=== PATIENT | female | born 1975 | race African-American/Black ===

== ENCOUNTER → 2020-04-23 15:10 | Outpatient (CLI) | payer BC, SELFPAY ==
--- NOTE | ~2020-04-23 | US_ITS ---
EXAMINATION: US transvaginal DATE: 04/23/2020 15:44 INDICATION: Pelvic pain TECHNIQUE: Multiple endovaginal sonographic images of the pelvis were obtained. COMPARISON: 09/30/2019 FINDINGS: The uterus measures 9.0 x 4.8 x 5.6 cm. There is a 3.3 x 2.8 x 2.9 cm isoechoic lesion of t he posterior uterine body which has the appearance of an intramural fibroid. A 1.8 cm lesion of the a nterior uterine body with similar sonographic features also likely represents an intramural fibroid. The endometrial complex measures 7 mm. An IUD is noted which appears to be positioned within the lowe r uterine body. The right ovary measures 2.9 x 1.7 x 2.4 cm. The left ovary measures 3.4 x 2.1 x 2.1 cm. There is normal vascular flow in the ovaries. There is no free fluid in the pelvis. IMPRESSION: 1. Uterine fibroids. 2. IUD appears positioned lower than expected in the uterus. Reviewed, dictated and finalized at location A.
== END ==
PROVIDERS: Visit Provider Nurse Practitioner
DX: R10.2 Pelvic and perineal pain (principal); D25.9 Leiomyoma of uterus, unspecified; Z97.5 Presence of (intrauterine) contraceptive device
CPT/HCPCS: 76830

== ENCOUNTER 2020-09-04 07:31 | Outpatient (CLI) | payer BC, SELFPAY ==
--- NOTE | ~2020-09-04 | US_ITS ---
EXAMINATION: US venous doppler LE RT DATE: 09/04/2020 08:07 INDICATION: Right lower limb pain. TECHNIQUE: Grayscale ultrasound images without and with compression and Doppler ultrasound images of the right lower extremity veins were obtained. COMPARISON: None. FINDINGS: The visualized portions of right common femoral vein, profunda (deep) femoral vein, femoral vein, pop liteal vein, peroneal veins, posterior tibial veins, and greater saphenous vein outflow are patent. IMPRESSION: 1. No deep venous thrombosis. Reviewed, dictated and finalized at location A. 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
== END 2020-09-04 07:32 | disposition home or self-care (01) ==
PROVIDERS: PCP Family Medicine; Visit Provider Family Medicine
DX: M79.604 Pain in right leg (principal)
CPT/HCPCS: 93971

== ENCOUNTER → 2020-12-17 11:21 | Outpatient (CLI) | payer BC, SELFPAY ==
--- NOTE | ~2020-12-17 | MM_ITS ---
EXAMINATION: MM screening saji BI w ant HISTORY: Screening mammogram, family history of breast cancer in her mother and two sisters, all of w bella are BRCA positive. TECHNIQUE: Craniocaudal and mediolateral oblique 3-D tomosynthesis images were obtained and synthetic 2-D images were generated. CAD analysis was submitted and interpreted. COMPARISON: None, baseline BREAST PARENCHYMAL COMPOSITION: There are scattered areas of fibroglandular density. FINDINGS: RIGHT BREAST: An asymmetry is present in the middle third of the lower breast on the mediolateral obl ique view 6 cm from the nipple. LEFT BREAST: There is no evidence of suspicious mass, calcification, or architectural distortion to s uggest malignancy. IMPRESSION: 1. Right breast asymmetry on the mediolateral oblique view. 2. Additional mammographic views and possible breast ultrasound are recommended. In addition, given t he patient's strong family history of breast cancer, genetic counseling will be recommended and addit ional screening with MRI may be indicated. BI-RADS Category 0: Incomplete: Needs additional imaging evaluation. Reviewed, dictated and finalized at location A. IMPRESSION: 1. Right breast asymmetry on the mediolateral oblique view. 2. Additional mammographic views and possible breast ultrasound are recommended . In addition, given the patient's strong family history of breast cancer, gene tic counseling will be recommended and additional screening with MRI may be ind icated. BI-RADS Category 0: Incomplete: Needs additional imaging evaluation.
== END ==
PROVIDERS: Visit Provider Nurse Practitioner
DX: Z12.31 Encounter for screening mammogram for malignant neoplasm of breast (principal); R92.8 Other abnormal and inconclusive findings on diagnostic imaging of breast
CPT/HCPCS: 77063; 77067

== ENCOUNTER → 2020-12-27 08:34 | Outpatient (CLI) | payer BC, SELFPAY ==
--- NOTE | ~2020-12-27 | MMUS_ITS ---
EXAMINATION: MM diagnostic mammo unilat RT, US breast RT limited HISTORY: Inferior right breast asymmetry on screening MLO view of 12/17/2020 TECHNIQUE: Additional 3-D tomosynthesis images of the right breast were performed and synthetic 2-D i mages were generated. CAD analysis was submitted and interpreted. High resolution lower inner and low er outer quadrant right breast ultrasound was performed. COMPARISON: 12/17/2020 bilateral digital screening mammogram FINDINGS: MAMMOGRAPHIC FINDINGS: No reproducible mass Or architectural distortion is evident. ULTRASOUND: No suspicious mass or shadowing is detected in the lower half of the right breast. IMPRESSION: 1. No mammographic evidence of malignancy 2. Routine mammographic screening is recommended. BI-RADS Category 1: Negative Reviewed, dictated and finalized at location A. IMPRESSION: 1. No mammographic evidence of malignancy 2. Routine mammographic screening is recommended. BI-RADS Category 1: Negative
== END ==
PROVIDERS: Visit Provider Obstetrics & Gynecology Gynecology
DX: R92.8 Other abnormal and inconclusive findings on diagnostic imaging of breast (principal)
CPT/HCPCS: 76642; 77065

== ENCOUNTER 2021-09-14 08:19 | Outpatient (CLI) | payer BC, SELFPAY ==
--- NOTE | ~2021-09-14 | MR_ITS ---
EXAMINATION: MR brain/brain stem wo/w con DATE: 09/14/2021 09:52 INDICATION: Anesthesia of skin. Left-sided numbness. TECHNIQUE: Magnetic resonance imaging (MRI) of the brain and brainstem was performed without and with 19 mL MultiHance intravenous contrast. Sequences included sagittal and axial T1-weighted FSE, axial diffusion-weighted FS EPI, axial T2*-weighted GRE, axial T2-weighted FLAIR Propeller, and axial T2-we ighted Propeller. Postcontrast sequences included axial, sagittal, and coronal T1-weighted FSE. Appar ent diffusion coefficient (ADC) maps were created. COMPARISON: None. FINDINGS: There is no intracranial hemorrhage, acute infarction, or abnormal intracranial mass lesion . The ventricles are normal in size. There is a mucous retention cyst in left maxillary sinus. The or bits are normal. The mastoid air cells are normal. IMPRESSION: 1. Normal brain. Reviewed, dictated and finalized at location A. RN IMPRESSION: 1. Normal brain.
[2021-09-14 09:18] LABS: Estimated Glomerular Filt Rate > 60
== END 2021-09-14 08:20 | disposition home or self-care (01) ==
PROVIDERS: PCP Family Medicine; Visit Provider Nurse Practitioner Gerontology
DX: R20.0 Anesthesia of skin (principal)
CPT/HCPCS: 70553; A9577

== ENCOUNTER 2021-09-29 08:41 | Outpatient (CLI) | payer BC, SELFPAY ==
--- NOTE | 2021-09-29 12:38 | WPDPFTINT ---
PFT Procedure Performed PFT Procedure Performed Spirometry with Pre/Post Bronchodilator Plethysmography (Lung Vol) Diffusing Cap (DLCO) Flow Vol Loop PFT Interpretation This is a pulmonary function test with pre and post-bronchodilator spirometry, plethysmography and diffusing capacity. The test was performed and results interpreted in accordance with the 2019 and 2005 ATS/ERS Task Force guidelines respectively using the Global Lung Function Initiative-2012 reference equations. Patient demonstrated good effort and cooperation. Reproducibility criteria were met. The quality of the pre bronchodilator spirometry maneuver was Grade A and post bronchodilator spirometry maneuver was Grade A. Findings: Spirometry: The contour the inspiratory and expiratory flow tracing are normal. The pre bronchodilator FVC is 2.61 L, 91% predicted. The pre bronchodilator FEV1 is 2.21 L, 94% predicted. The FEV1: FVC ratio was 85%. The post bronchodilator FVC is 2.73 L, representing a 5% increase. The post bronchodilator FEV1 is 2.37 L, representing a 7% increase. The post bronchodilator FEV1: FVC ratio was 87%. Plethysmography: The total lung capacity is 3.88 L, 93% predicted. The functional residual capacity is 2.25 L, 97% predicted. The residual volume is 1.27 L, 89% predicted. Diffusing capacity: The absolute diffusion capacity is 19.7, 87% predicted. The diffusing capacity corrected for alveolar volume is 5.73, 119% predicted. Impression: The spirometry is normal without evidence of an obstructive abnormality. There is no significant improvement after inhaling a single dose of albuterol. The lung volumes are normal. The diffusing capacity is normal. There are no prior studies for comparison
== END 2021-09-29 08:42 | disposition home or self-care (01) ==
PROVIDERS: PCP Family Medicine; Visit Provider Family Medicine
DX: J05.0 Acute obstructive laryngitis [croup] (principal)
CPT/HCPCS: 94060; 94726; 94729

== ENCOUNTER → 2021-11-08 09:33 | Outpatient (CLI) | payer BC, SELFPAY ==
--- NOTE | ~2021-11-08 | US_ITS ---
EXAMINATION: US transvaginal DATE: 11/08/2021 10:05 INDICATION: Abnormal uterine bleeding. IUD. Comparison:Ultrasound dated 04/23/2020 TECHNIQUE: Multiple transabdominal and endovaginal sonographic images of the pelvis performed. FINDINGS: The uterus measures 10.8 x 5.3 x 6.6 cm. There are multiple uterine fibroids, largest measu ring 3.1 cm greatest dimension. There is an IUD in expected position in the endometrium. The endometr ial complex measures 8 mm. The right ovary measures 2.5 x 2.1 x 2.6 cm and the left ovary measures 3.7 x 2.1 x 3.2 cm. There ar e small follicles in each ovary. Normal doppler signal in both ovaries. There is no free fluid in the pelvis. There are no abnormal masses seen on either side. IMPRESSION: 1. Enlarged uterus with multiple uterine fibroids, largest measuring up to 3.1 cm maximum dimension. Reviewed, dictated and finalized at location A. 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
== END ==
PROVIDERS: Visit Provider Nurse Practitioner
DX: N93.8 Other specified abnormal uterine and vaginal bleeding (principal); Z97.5 Presence of (intrauterine) contraceptive device; D25.9 Leiomyoma of uterus, unspecified
CPT/HCPCS: 76830

== ENCOUNTER → 2022-01-27 14:03 | Outpatient (CLI) | payer BC, SELFPAY ==
--- NOTE | ~2022-01-27 | MM_ITS ---
EXAMINATION: MM screening saji BI w ant HISTORY: Screening TECHNIQUE: Craniocaudal and mediolateral oblique 3-D tomosynthesis images were obtained and synthetic 2-D images were generated. CAD analysis was submitted and interpreted. COMPARISON: 12/17/2020 BREAST PARENCHYMAL COMPOSITION: There are scattered areas of fibroglandular density. FINDINGS: There is no evidence of suspicious mass, calcification, or architectural distortion to sugg est malignancy in either breast. There has been no suspicious interval change. IMPRESSION: 1. No mammographic evidence of malignancy. 2. Recommend routine screening mammography in one year. BI-RADS Category 1: Negative Reviewed, dictated and finalized at location A.
== END ==
PROVIDERS: PCP Family Medicine; Visit Provider Nurse Practitioner
DX: Z12.31 Encounter for screening mammogram for malignant neoplasm of breast (principal)
CPT/HCPCS: 77063; 77067

== ENCOUNTER 2022-02-10 15:00 | Outpatient (RCR) | payer BC, SELFPAY ==
--- NOTE | 2022-01-09 09:08 | STOPEVAL ---
SPEECH THERAPY INITIAL EVALUATION FOR VOICE Thank you for referring Huma Carlos to [facility].? The patient is scheduled to be seen for therapy? 1x/week for 4 weeks. Please review, sign, date and return this plan of care MORRIS. I agree with and certify that the following plan of care is medically necessary. Referring Physician Date Attending Provider: Singh Pittman MD Therapy Assessment Status Assessment Status Assessment Status Evaluation Outpatient Past Medical History Neurological History Hx Neurological Disorders No Significant History Cardiovascular History Hx Hypertension Yes Respiratory History Hx Respiratory Disorders No Significant History Gastrointestinal History Hx Ulcerative Colitis Yes: OFF MEDS FOR 2 YEARS Hx Other Gastrointestinal Disorders Yes: BLOOD IN STOOL, MILD CONSTIPATION Evaluation Information Problem Diagnosis Dysphonia Onset 07/10 Additional Evaluation Detail Gradual worsening of symptoms beginning around June 2021. 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 Around June,, she began to notice she was screeching, raising of pitch with loss of voicing. She noticed that she may speak well between 9-12 in the morning, with pitch breaks beginning around noon, and then loss of voice by four PM through the end of the work day. She reports an average day of speaking around 7 hours and 15 minutes, up to 10-11 hours a day of speaking. She reports minimal rest breaks in between customers. Patient reports she has had to miss work for various amounts of time, from an hour through a whole day due to loss of voice. Patient reports that she has suffered a dry cough throughout this time. She reported that this occurred prior to the June and her physician prescribed a 90 day prescription of Omeprazole.
--- NOTE | 2022-02-12 16:30 | STOPEVAL ---
SPEECH THERAPY DISCHARGE SUMMARY Thank you for referring Huma Carlos to [facility].? I understand patient is being discharged from Speech Therapy with all goals achieved. Referring Physician Date Attending Provider: Singh Pittman MD ST Clinical Summary Clinical Summary ST Clinical Summary SPEECH THERAPY DISCHARGE SUMMARY This patient was seen for an initial evaluation of voice due to complaints of vocal hoarseness and voice breaking or screeching at times due to vocal fatigue. She was seen for four additional visits to address introduction to vocal hygiene program along with respiration/ phonation coordination and relaxation techniques, and safe swallowing guidelines and gastroesophageal reflux precautions. Patient voiced and demonstrated good understanding of results and recommendations. Of concern is her need to speak on the phone for great lengths of time during the word day; patient stated that she has learned some techniques to assist with this such as placing customers on brief holds when she feels her voice is beginning to break, and requesting a change to a different position that requires more paperwork and less telephone time. During our sessions, patient speaks frequently, constantly and quickly and appears to be somewhat oblivious to this although she does report she is aware that she speaks like this. Nonetheless during our last session, she spoke almost non-stop until her voice became fatigued and then hoarseness occurred. Overall, patient stated that
== END 2022-02-13 11:07 | disposition home or self-care (01) ==
LOC: ANHST 15:00
PROVIDERS: Visit Provider Otolaryngology
DX: R49.0 Dysphonia (principal)
CPT/HCPCS: 92507; 92524

== ENCOUNTER 2022-07-09 11:17 | Outpatient (CLI) | payer BC, SELFPAY ==
[2022-07-09 11:48] LABS: Basophils Percent Auto 0.4 % (0.2-1.2); Eosinophils Percent Auto 0.4 % (0-4.4); Hematocrit 37.4 % (37.0-47.0); Hemoglobin 12.3 g/dL (12.0-15.0); Immature Granulocyte Absolute 0.02 K/mm3 (0.00-0.031); Immature Granulocyte Percent A 0.4 % (0-0.5); Lymphocytes Absolute Auto 1.41 K/mm3 (0.9-3.2); Lymphocytes Percent Auto 30.4 % (18.3-44.2); Mean Corpuscular HGB Conc 32.9 g/dl (32-36); Mean Corpuscular Hemoglobin 22.9 pg (26-34); Mean Corpuscular Volume 69.5 fl (80-100); Mean Platelet Volume 9.3 fl (7.4-10.4); Monocytes Absolute Auto 0.5 K/mm3 (0.1-0.6); Monocytes Percent Auto 11.6 % (2.6-8.5); Neutrophils Absolute Auto 2.6 K/mm3 (1.3-6.7); Neutrophils Percent Auto 56.8 % (45.5-73.1); Platelet Count Result 224 k/mm3 (150-375); Red Blood Count 5.38 M/mm3 (4.2-5.4); Red Cell Distribution Width 14.3 % (11.5-14.5); White Blood Count 4.6 K/mm3 (4.5-10.0)
[2022-07-09 12:01] LABS: Alanine Aminotransferase 36 U/L (6-35); Albumin Level 4.3 g/dL (3.5-5.1); Alkaline Phosphatase 49 U/L (38-126); Anion Gap 9 mmol/L (8-16); Aspartate Amino Transferase 46 U/L (14-36); Bilirubin,Total 0.3 mg/dL (0.2-1.3); Blood Urea Nitrogen 12 mg/dL (7-17); Calcium 8.5 mg/dL (8.4-10.2); Carbon Dioxide 28 mmol/L (22-30); Chloride 100 mmol/L (98-107); Estimated Glomerular Filt Rate > 60; Glucose 98 mg/dL (65-110); Potassium 3.6 mmol/L (3.4-5.0); Sodium 137 mmol/L (137-145)
[2022-07-09 13:00] LABS: Hypochromasia 1+ (NORMAL); Platelet Estimate Adequate (Adequate); Target Cells 1+ (NORMAL)
[2022-07-09 13:05] LABS: Schistocytes None Seen (NORMAL)
== END 2022-07-09 11:18 | disposition home or self-care (01) ==
LOC: ANHLAB 11:18
PROVIDERS: PCP Family Medicine; Visit Provider Physician Assistant
DX: I10 Essential (primary) hypertension (principal); R63.5 Abnormal weight gain; K51.90 Ulcerative colitis, unspecified, without complications
CPT/HCPCS: 36415; 80053; 84443; 85025

== ENCOUNTER → 2023-04-16 16:26 | Outpatient (CLI) | payer BC, SELFPAY ==
--- NOTE | ~2023-04-16 | MM_ITS ---
EXAMINATION: MM screening saji BI w ant HISTORY: Screening mammogram TECHNIQUE: Craniocaudal and mediolateral oblique 3-D tomosynthesis images were obtained and synthetic 2-D images were generated. CAD analysis was submitted and interpreted. COMPARISON: 01/27/2022 bilateral screening mammogram 12/27/2020 diagnostic right mammogram and limited right breast ultrasound examination 12/17/2020 bilateral screening mammogram BREAST PARENCHYMAL COMPOSITION: There are scattered areas of fibroglandular density. FINDINGS: There is no evidence of suspicious mass, calcification, or architectural distortion to sugg est malignancy in either breast. There has been no suspicious interval change. IMPRESSION: 1. No mammographic evidence of malignancy. 2. Recommend routine screening mammography in one year. BI-RADS Category 1: Negative Reviewed, dictated and finalized at location A.
== END ==
PROVIDERS: PCP Obstetrics & Gynecology Gynecology; Visit Provider Family Medicine
DX: Z12.31 Encounter for screening mammogram for malignant neoplasm of breast (principal)
CPT/HCPCS: 77063; 77067

== ENCOUNTER 2023-08-10 01:31 | Day surgery (SDC) | payer BC, SELFPAY ==
[2023-07-28 09:25] VITALS: BMI 37.7
--- NOTE | 2023-08-06 14:22 | SUR.PREOP ---
Patient called regarding upcoming procedure. No answer- message left with arrival time and phone number for questions.
[2023-08-10 10:15] VITALS: BP 128/99; PULSE 100; RESP 18; TEMP 36.2; O2SAT 100; BMI 37.8
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
[2023-08-10] MEDS: LACTATED RINGERS 1,000 ML 150 ML IV CONT (10:40)
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
[2023-08-10 11:34] VITALS: BP 120/86; PULSE 91; RESP 22; O2SAT 100
[2023-08-10 11:44] VITALS: BP 131/91; PULSE 88; RESP 20; O2SAT 100
[2023-08-10 11:54] VITALS: BP 122/87; PULSE 87; RESP 19; O2SAT 100
== END 2023-08-10 12:01 | disposition home or self-care (01) ==
PROVIDERS: PCP Family Medicine; Visit Provider Internal Medicine Gastroenterology
PROC: 0DJD8ZZ Inspection of Lower Intestinal Tract, Via Natural or Artificial Opening Endoscopic (ICD-10-PCS; CPT 45378; principal; 2023-08-10 11:30)
DX: K51.20 Ulcerative (chronic) proctitis without complications (principal); I10 Essential (primary) hypertension; F41.1 Generalized anxiety disorder; E05.90 Thyrotoxicosis, unspecified without thyrotoxic crisis or storm; F33.1 Major depressive disorder, recurrent, moderate; E66.9 Obesity, unspecified; Z68.37 Body mass index [BMI] 37.0-37.9, adult; K64.8 Other hemorrhoids
CPT/HCPCS: 45380; 88305; J2001; J2704; J7120

== ENCOUNTER 2024-02-20 18:08 | Emergency (ER) | payer BC, SELFPAY ==
[2024-02-20] VITALS (12 sets, daily range): BP systolic 119–173; BP diastolic 88–122; PULSE 72–89; RESP 14–22; TEMP 36.6; O2SAT 99–100
--- NOTE | ~2024-02-20 | XR_ITS ---
EXAMINATION: XR chest 2V DATE: 02/20/2024 18:33 INDICATION: Chest heaviness. TECHNIQUE: Frontal and lateral views of the chest were obtained. COMPARISON: Chest 2 views 05/29/2019 FINDINGS: There is motion artifact on the lateral view. There is no pneumonia, pleural effusion, or p neumothorax. The heart size is normal. IMPRESSION: 1. No acute cardiopulmonary disease. Reviewed, dictated and finalized at location E.
--- NOTE | 2024-02-20 18:15 | ECG_ITS ---
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 Measurements Intervals [place] Rate: 86 P: 26 CA: 145 QRS: -42 QRSD: 122 T: 253 QT: 363 QTc: 436 Interpretive Statements SINUS RHYTHM MARKED LEFT AXIS DEVIATION [QRS AXIS < -30] POSSIBLE RIGHT VENTRICULAR CONDUCTION DELAY [RSR (QR) IN V1/V2] ABNORMAL ECG No previous ECG available for comparison Electronically Signed On 02-21-2024 07:25:07 CDT by Gal Arevalo M.D.
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
[2024-02-20 18:56] LABS: Basophils Percent Auto 0.7 % (0.2-1.2); Eosinophils Percent Auto 0.3 % (0-4.4); Hematocrit 37.2 % (37.0-47.0); Hemoglobin 12.6 g/dL (12.0-15.0); Immature Granulocyte Absolute 0.02 K/mm3 (0.00-0.031); Immature Granulocyte Percent A 0.7 % (0-0.5); Lymphocytes Absolute Auto 0.72 K/mm3 (0.9-3.2); Mean Corpuscular HGB Conc 33.9 g/dl (32-36); Mean Corpuscular Hemoglobin 23.4 pg (26-34); Mean Corpuscular Volume 69.1 fl (80-100); Mean Platelet Volume 10.6 fl (7.4-10.4); Monocytes Absolute Auto 0.5 K/mm3 (0.1-0.6); Monocytes Percent Auto 16.3 % (2.6-8.5); Neutrophils Absolute Auto 1.6 K/mm3 (1.3-6.7); Platelet Count Result 203 k/mm3 (150-375); Red Blood Count 5.38 M/mm3 (4.2-5.4); Red Cell Distribution Width 16.4 % (11.5-14.5); White Blood Count 2.9 K/mm3 (4.5-10.0)
[2024-02-20 19:07] LABS: Anisocytosis 1+; Hypochromasia 1+; Microcytosis 1+ (NORMAL); Platelet Estimate Adequate (Adequate); Target Cells 1+
[2024-02-20 19:08] LABS: INR 1.1; Prothrombin Time 14.6 Seconds (11.1-14.7); Schistocytes None Seen
[2024-02-20 19:09] LABS: Partial Thromboplastin Time 24.4 Seconds (22.3-36.8)
[2024-02-20 19:18] LABS: Troponin I < 0.012 ng/mL (0.000-0.034)
[2024-02-20 19:19] LABS: Alanine Aminotransferase 38 U/L (6-35); Albumin Level 4.3 g/dL (3.5-5.1); Alkaline Phosphatase 58 U/L (38-126); Anion Gap 7 mmol/L (4-12); Aspartate Amino Transferase 47 U/L (14-36); Bilirubin,Total 0.9 mg/dL (0.2-1.3); Blood Urea Nitrogen 3 mg/dL (7-17); Calcium 9.2 mg/dL (8.4-10.2); Carbon Dioxide 31 mmol/L (22-30); Chloride 99 mmol/L (98-107); Estimated CRCL calculation 105 ml/min; Estimated Glomerular Filt Rate > 60; Glucose 107 mg/dL (65-110); Lipase 32 U/L (23-300); Potassium 2.8 mmol/L (3.4-5.0); Sodium 137 mmol/L (137-145)
[2024-02-20] MEDS: POTASSIUM CHLORIDE 20 MEQ PACKET (FOR LIQUID) 40 MEQ PO (19:38)
[2024-02-20] MEDS: POTASSIUM CHLORIDE 20 MEQ ER TABLET 40 MEQ PO (19:39)
[2024-02-20] MEDS: cloNIDine HCL 0.1 MG TABLET PO (19:39)
[2024-02-20 19:57] LABS: Magnesium 1.7 mg/dL (1.6-2.3)
--- NOTE | 2024-02-20 21:05 | ECG_ITS ---
[facility] [address] Test Date: 2024-02-20 Pat Name: Huma Carlos Department: Room: Gender: F [employer] Rep[employer]r: : 1975 Requested By: Valentina Oquendo Order Number: [id number] Jin MD: Gal Arevalo M.D. Measurements Intervals [place] Rate: 71 P: -13 OK: 137 QRS: -37 QRSD: 84 T: -60 QT: 373 QTc: 407 Interpretive Statements SINUS RHYTHM MARKED LEFT AXIS DEVIATION [QRS AXIS < -30] POSSIBLE RIGHT VENTRICULAR CONDUCTION DELAY [RSR (QR) IN V1/V2] MODERATE VOLTAGE CRITERIA FOR LVH, CONSIDER NORMAL VARIANT [MEETS CRITERIA I NONSPECIFIC T-WAVE ABNORMALITY ABNORMAL ECG Compared to ECG 02/20/2024 18:19:08 NO SIGNIFICANT DIFFERENCE Electronically Signed On 02-21-2024 07:32:06 CDT by Gal Arevalo M.D.
[2024-02-20 22:07] LABS: Troponin I < 0.012 ng/mL (0.000-0.034)
== END 2024-02-20 22:23 | disposition home or self-care (01) ==
PROVIDERS: Emergency Medicine; Emergency Provider Emergency Medicine; PCP Family Medicine
DX: R07.89 Other chest pain (principal); E87.6 Hypokalemia; I10 Essential (primary) hypertension; E66.09 Other obesity due to excess calories; Z68.37 Body mass index [BMI] 37.0-37.9, adult; K51.90 Ulcerative colitis, unspecified, without complications; F41.1 Generalized anxiety disorder; F33.9 Major depressive disorder, recurrent, unspecified; Z97.5 Presence of (intrauterine) contraceptive device; Z79.899 Other long term (current) drug therapy; R94.31 Abnormal electrocardiogram [ECG] [EKG]
CPT/HCPCS: 36415; 71046; 80053; 83690; 83735; 84484; 85025; 85610; 85730; 93005; 99284; A9270

== ENCOUNTER 2024-04-18 07:39 | Outpatient (CLI) | payer BC, SELFPAY ==
--- NOTE | ~2024-04-18 | MM_ITS ---
EXAMINATION: MM screening saji BI w ant HISTORY: Screening TECHNIQUE: Craniocaudal and mediolateral oblique 3-D tomosynthesis images were obtained and synthetic 2-D images were generated. CAD analysis was submitted and interpreted. COMPARISON: Comparison to multiple prior studies sequentially, with oldest reviewed study dated 12/17. BREAST PARENCHYMAL COMPOSITION: Not dense: There are scattered areas of fibroglandular density. FINDINGS: There is no evidence of suspicious mass, calcification, or architectural distortion to sugg est malignancy in either breast. There has been no suspicious interval change. IMPRESSION: 1. No mammographic evidence of malignancy. 2. Recommend routine screening mammography in one year. BI-RADS Category 1: Negative Reviewed, dictated and finalized at location B.
== END 2024-04-18 07:40 ==
PROVIDERS: PCP Family Medicine; Visit Provider Nurse Practitioner
DX: Z12.31 Encounter for screening mammogram for malignant neoplasm of breast (principal)
CPT/HCPCS: 77063; 77067

== ENCOUNTER 2024-05-02 14:29 | Outpatient (CLI) | payer BC, SELFPAY ==
--- NOTE | ~2024-05-02 | US_ITS ---
EXAMINATION: US transvaginal DATE: 05/02/2024 14:53 INDICATION: Abnormal uterine bleeding. TECHNIQUE: Multiple transvaginal sonographic images of the pelvis were obtained. COMPARISON: Ultrasound 11/08/2021 FINDINGS: The uterus measures 10.2 x 5.6 x 6.0 cm. There is no free fluid in the pelvis. The endometrial comple x measures 4 mm in thickness. There is an intrauterine device in expected position. There is a 2.3 cm submucosal fibroid. There is a 3.6 cm intramural fibroid. The ovaries are not visualized. IMPRESSION: 1. Uterine fibroids. 2. Intrauterine device in expected position. Reviewed, dictated and finalized at location A.
== END 2024-05-02 14:30 ==
LOC: MICIMG 14:30
PROVIDERS: PCP Family Medicine; Visit Provider Nurse Practitioner
DX: N93.8 Other specified abnormal uterine and vaginal bleeding (principal); D25.9 Leiomyoma of uterus, unspecified; Z97.5 Presence of (intrauterine) contraceptive device
CPT/HCPCS: 76830

== ENCOUNTER 2024-06-21 20:38 | Emergency (ER) | payer BC, SELFPAY ==
--- NOTE | ~2024-06-21 | CT_ITS ---
EXAMINATION: CT lumbar spine wo con DATE: 06/21/2024 23:39 INDICATION: Sacral pain. Fall one week ago. TECHNIQUE: Computed tomography (CT) of the lumbar spine was performed without intravenous contrast. A utomated exposure control and iterative reconstruction technique were employed. The dose-length produ ct was 846.92 mGy-cm. COMPARISON: Lumbar spine radiographs 11/28/2018 FINDINGS: There is an intrauterine device in expected position. There is 3 mm anterolisthesis of L4 o n L5. There is 6 degrees levocurvature of lumbar spine. Vertebral body heights are normal. There is a fracture deformity of S5. There is mildly decreased disc height at L3-L4 and L4-L5 and moderately de creased disc height at L5-S1. The following disc levels are specifically discussed: L1-L2: The disc does not extend beyond the endplate margin. There is mild bilateral facet joint osteo arthritis. There is no neural foraminal stenosis. There is no central canal stenosis. L2-L3: The disc does not extend beyond the endplate margin. There is mild bilateral facet joint osteo arthritis. There is no neural foraminal stenosis. There is no central canal stenosis. L3-L4: The disc is bulging. There is severe bilateral facet joint osteoarthritis. There is mild bilat eral neural foraminal stenosis. There is mild central canal stenosis. L4-L5: The disc is bulging. There is severe bilateral facet joint osteoarthritis. There is mild bilat eral neural foraminal stenosis. There is moderate central canal stenosis. L5-S1: The disc is bulging. There is severe bilateral facet joint osteoarthritis. There is mild bilat eral neural foraminal stenosis. There is mild central canal stenosis. IMPRESSION: 1. Age-indeterminate fracture deformity of S5. 2. Moderate lumbar spondylosis. Reviewed, dictated and finalized at location A.
--- NOTE | ~2024-06-21 | XR_ITS ---
EXAMINATION: XR knee LT min 4V DATE: 06/21/2024 23:45 INDICATION: Left knee pain. Fall. TECHNIQUE: 4 views of left knee were obtained. COMPARISON: None. FINDINGS: Alignment is normal. No fracture. There is mild osteoarthritis of medial compartment. No kn ee joint effusion. IMPRESSION: 1. Mild left knee osteoarthritis. Reviewed, dictated and finalized at location A.
[2024-06-21 20:45] VITALS: BP 146/98; PULSE 68; RESP 16; TEMP 36.6; O2SAT 100
[2024-06-21 22:33] VITALS: BP 141/101; PULSE 68; RESP 18; O2SAT 100
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
[2024-06-21 23:29] LABS: Basophils Percent Auto 0.1 % (0.2-1.2); Eosinophils Absolute Auto 0.1 K/mm3 (0-0.3); Eosinophils Percent Auto 0.7 % (0-4.4); Hematocrit 32.9 % (37.0-47.0); Hemoglobin 11.1 g/dL (12.0-15.0); Immature Granulocyte Absolute 0.01 K/mm3 (0.00-0.031); Immature Granulocyte Percent A 0.1 % (0-0.5); Lymphocytes Absolute Auto 1.35 K/mm3 (0.9-3.2); Lymphocytes Percent Auto 19.9 % (18.3-44.2); Mean Corpuscular HGB Conc 33.7 g/dl (32-36); Mean Corpuscular Hemoglobin 24.1 pg (26-34); Mean Corpuscular Volume 71.4 fl (80-100); Mean Platelet Volume 10.9 fl (7.4-10.4); Monocytes Absolute Auto 0.4 K/mm3 (0.1-0.6); Monocytes Percent Auto 5.3 % (2.6-8.5); Neutrophils Percent Auto 73.9 % (45.5-73.1); Platelet Count Result 199 k/mm3 (150-375); Red Blood Count 4.61 M/mm3 (4.2-5.4); Red Cell Distribution Width 15.5 % (11.5-14.5); White Blood Count 6.8 K/mm3 (4.5-10.0)
[2024-06-21 23:39] LABS: Anion Gap 5 mmol/L (4-12); Blood Urea Nitrogen 20 mg/dL (7-17); Calcium 8.8 mg/dL (8.4-10.2); Carbon Dioxide 27 mmol/L (22-30); Chloride 105 mmol/L (98-107); Estimated CRCL calculation 97 ml/min; Estimated Glomerular Filt Rate > 60; Glucose 89 mg/dL (65-110); Potassium 3.6 mmol/L (3.4-5.0); Sodium 137 mmol/L (137-145)
[2024-06-21 23:46] LABS: Microcytosis 1+ (NORMAL); Platelet Estimate Adequate (Adequate); Schistocytes None Seen
[2024-06-21 23:49] LABS: NT Pro B Type Natriuretic Pept 302 pg/mL (19.9-100)
[2024-06-22] MEDS: KETOROLAC 30 MG/ML VIAL (*BKC) IM (00:11)
[2024-06-22] MEDS: LIDOCAINE 5% PATCH 1 PATCH TRANSDERM (00:11)
[2024-06-22] MEDS: HYDROcodone/acetaminophen (*CRX) 5-325 MG TABLET 1 TAB PO (00:19)
[2024-06-22 00:38] VITALS: BP 148/96; PULSE 73; RESP 15; O2SAT 100
== END 2024-06-22 00:40 | disposition home or self-care (01) ==
PROVIDERS: Emergency Provider Physician Assistant; PCP Family Medicine
DX: S32.10XA Unspecified fracture of sacrum, initial encounter for closed fracture (principal); S89.92XA Unspecified injury of left lower leg, initial encounter; D50.9 Iron deficiency anemia, unspecified; I10 Essential (primary) hypertension; K51.90 Ulcerative colitis, unspecified, without complications; M17.12 Unilateral primary osteoarthritis, left knee; F41.1 Generalized anxiety disorder; F32.9 Major depressive disorder, single episode, unspecified; Z79.3 Long term (current) use of hormonal contraceptives; Z79.899 Other long term (current) drug therapy; W10.1XXA Fall (on)(from) sidewalk curb, initial encounter
CPT/HCPCS: 36415; 72131; 73564; 80048; 83880; 85025; 96372; 99284; A9270; J1885

== ENCOUNTER 2024-08-28 13:35 | Emergency (ER) | payer BC, SELFPAY ==
--- NOTE | ~2024-08-28 | US_ITS ---
EXAMINATION: US pelvic complete w TV DATE: 08/28/2024 15:27 INDICATION: Lower abdominal cramping and vaginal bleeding. TECHNIQUE: Multiple transabdominal and endovaginal sonographic images of the pelvis were obtained. COMPARISON: None. FINDINGS: The uterus measures 9.2 x 5.9 x 5.2 cm. The endometrial complex measures 4 mm in thickness. Again se en are portions of a linear echogenic and shadowing IUD within endometrial canal. Visualization is ho wever compromised by shadowing from a 3.7 cm fibroid in the more anterior body of the uterus. There i s a second 3.8 cm hypoechoic fibroid in the posterior body of the uterus. The right ovary measures 2.7 x 2.4 x 1.8 cm. 1.3 cm anechoic right ovarian cyst. There is an addition al The 4.2 cm complex cystic lesion arising from the periphery of the right ovary with subtle thin in ternal septations which is without evident correlate on recent CT of the lumbar spine dated 06/21/2024 with appearance consistent with and statistically most likely to represent a hemorrhagic cyst. Left ovary measures 3.4 x 2.4 x 2.8 cm. Vascular flow identified at both ovaries on color Doppler. There i s minimal amount of anechoic likely physiologic free fluid in the pelvis. IMPRESSION: 1. Uterine fibroids which partially obscures an IUD which remains in expected position. 2. 4.2 cm complex right adnexal lesion consistent with and statistically most likely to represent a h emorrhagic cyst. Recommend 6-12 week follow-up ultrasound to document resolution. Reviewed, dictated and finalized at location A. PAPER PEDDLER IMPRESSION: 1. Uterine fibroids which partially obscures an IUD which remains in expected p osition. 2. 4.2 cm complex right adnexal lesion consistent with and statistically most l ikely to represent a hemorrhagic cyst. Recommend 6-12 week follow-up ultrasound to document resolution.
[2024-08-28 13:49] VITALS: BP 161/120; PULSE 92; RESP 14; TEMP 36.3; O2SAT 98
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
[2024-08-28 14:16] LABS: Basophils Percent Auto 0.3 % (0.2-1.2); Eosinophils Percent Auto 0.2 % (0-4.4); Hematocrit 36.2 % (37.0-47.0); Hemoglobin 12.1 g/dL (12.0-15.0); Immature Granulocyte Absolute 0.01 K/mm3 (0.00-0.031); Immature Granulocyte Percent A 0.2 % (0-0.5); Lymphocytes Absolute Auto 1.51 K/mm3 (0.9-3.2); Lymphocytes Percent Auto 25.8 % (18.3-44.2); Mean Corpuscular HGB Conc 33.4 g/dl (32-36); Mean Corpuscular Hemoglobin 23.6 pg (26-34); Mean Corpuscular Volume 70.6 fl (80-100); Mean Platelet Volume 10.6 fl (7.4-10.4); Monocytes Absolute Auto 0.5 K/mm3 (0.1-0.6); Monocytes Percent Auto 8.5 % (2.6-8.5); Neutrophils Absolute Auto 3.8 K/mm3 (1.3-6.7); Platelet Count Result 243 k/mm3 (150-375); Red Blood Count 5.13 M/mm3 (4.2-5.4); Red Cell Distribution Width 14.9 % (11.5-14.5); White Blood Count 5.9 K/mm3 (4.5-10.0)
[2024-08-28 14:18] LABS: Add Urine Microscopic? YES; Appearance Urine Cloudy (Clear); Bilirubin Urine 1+ (Negative); Blood Urine 3+ (Negative); Color Urine Orange (Yellow); Glucose Urine UA Negative (Negative); Ketones Urine Trace mg/dL (Negative); Leukocyte Esterase Ur 1+ LEU/UL (Negative); Nitrate Urine Negative (Negative); Protein Urine 1+ mg/dL (Negative); Specific Grav Ur 1.036 (1.001-1.035); pH Urine 5.5 (5.0-9.0)
[2024-08-28 14:22] LABS: Bacteria Urine None Seen /hpf; Non Pathogenic Casts 0-2; RBC Urine >100 /hpf (0-2); Squamous Epithelial Cell Urine None Seen /hpf (Few)
[2024-08-28 14:28] LABS: INR 1.1; Prothrombin Time 14.7 Seconds (11.1-14.7)
[2024-08-28 14:30] LABS: Alanine Aminotransferase 21 U/L (6-35); Albumin Level 4.6 g/dL (3.5-5.1); Alkaline Phosphatase 75 U/L (38-126); Anion Gap 6 mmol/L (4-12); Aspartate Amino Transferase 32 U/L (14-36); Bilirubin,Total 0.8 mg/dL (0.2-1.3); Blood Urea Nitrogen 19 mg/dL (7-17); Calcium 9.1 mg/dL (8.4-10.2); Carbon Dioxide 28 mmol/L (22-30); Chloride 103 mmol/L (98-107); Estimated CRCL calculation 88 ml/min; Estimated Glomerular Filt Rate > 60; Glucose 100 mg/dL (65-110); Potassium 4.2 mmol/L (3.4-5.0); Sodium 137 mmol/L (137-145)
[2024-08-28 14:40] LABS: Anisocytosis 1+; Hypochromasia 1+; Microcytosis 1+ (NORMAL); Platelet Estimate Adequate (Adequate); Schistocytes None Seen; Target Cells 1+
[2024-08-28 14:46] LABS: Beta HCG Quantitative < 2.39 mIU/ML
[2024-08-28 16:26] VITALS: BP 156/101; PULSE 76; RESP 18; TEMP 36.8; O2SAT 100
--- NOTE | 2024-08-28 16:31 | PC.NURSE ---
called pt to take to a room and pt did not answer x 2
--- NOTE | 2024-08-28 17:44 | PC.NURSE ---
pt ambulatory to bathroom is on her 4th pad in 5 hours.
== END 2024-08-28 19:11 | disposition home or self-care (01) ==
PROVIDERS: Physician Assistant; Emergency Provider Emergency Medicine; PCP Family Medicine
DX: N93.8 Other specified abnormal uterine and vaginal bleeding (principal); N83.201 Unspecified ovarian cyst, right side; I10 Essential (primary) hypertension; Z97.5 Presence of (intrauterine) contraceptive device; D25.9 Leiomyoma of uterus, unspecified
CPT/HCPCS: 36415; 76830; 76856; 80053; 81001; 84702; 85025; 85610; 85730; 87086; 99284

== ENCOUNTER 2024-10-31 15:28 | Outpatient (CLI) | payer BC, SELFPAY ==
--- NOTE | ~2024-10-31 | US_ITS ---
EXAM: PELVIC ULTRASOUND HISTORY: Ovarian cyst, right COMPARISON: 08/28/2024. FINDINGS: UTERUS: 9.5 x 5.9 x 5.7 cm. The endometrial complex measures 2.5 mm. Limited visualization of the intrauterine device secondary to multiple fibroids. Multiple fibroids are identified within the uterus. The largest is within the intramural space along the posterior fundus measuring 2.9 x 3.6 x 4 cm. RIGHT OVARY: The right ovary is unremarkable in echogenicity and size measuring 3.7 x 1.9 x 1.6 cm. Dopplerable flow is identified. Two anechoic avascular foci are identified within the right ovary. The first focus measures 10.8 14.3 x 11.5 mm. The second focus measures 12.4 x 11.5 x 14.7 mm. These most likely represent simple cysts versus involuting follicles for which no further follow-up i s needed. The previously identified hemorrhagic cyst is no longer visualized on the submitted images. LEFT OVARY: The left ovary is unremarkable in echogenicity and size measuring 1.2 x 1.7 x 2.1 cm Dopplerable flow is identified. No free fluid is identified within the pelvis. IMPRESSION: Fibroid uterus. Simple cysts within the right ovary measuring less than 2 cm for which no further follow-up is needed . The previously identified hemorrhagic cyst is no longer visualized. Reviewed, dictated and finalized at location A. RER CONSTRUCTION OR LEAK GANG IMPRESSION: Fibroid uterus. Simple cysts within the right ovary measuring less than 2 cm for which no furth er follow-up is needed. The previously identified hemorrhagic cyst is no longer visualized.
== END 2024-10-31 15:29 | disposition home or self-care (01) ==
LOC: MICIMG 15:29
PROVIDERS: PCP Obstetrics & Gynecology Gynecology; Visit Provider Obstetrics & Gynecology Gynecology
DX: N83.201 Unspecified ovarian cyst, right side (principal)
CPT/HCPCS: 76830

== ENCOUNTER 2024-12-04 08:36 | Outpatient (CLI) | payer BC, SELFPAY ==
--- NOTE | ~2024-12-04 | US_ITS ---
US transvaginal Ordering provider: Darline Espinal, TELEPHONE SOLICITOR History: . IUD . Comparison: None. Technique: endovaginal ultrasound of the pelvis (Doppler ultrasound interrogation techniques used as needed for this exam.) FINDINGS: CERVIX: Normal. UTERUS: Measures 10x 6.1x 6 cm in length which is within normal limits and is anteverted. Multiple f ibroids are noted with the largest measures 3.3 x 3.7 x 3.8 cm.. ENDOMETRIUM: Normal in thickness measuring 6.2 mm. No endometrial masses, cysts or fluid. IUD is note d in the endometrial cavity. CUL DE SAC: No free fluid. RIGHT OVARY: Normal in size measuring 2.2x 4.1x 2.1 cm. Normal echotexture. Doppler vascular flow pre sent. LEFT OVARY: Normal in size measuring 2.4x 1.5x 2.1 cm. Normal echotexture. Doppler vascular flow pres ent. ADNEXA: Normal. No mass. IMPRESSION: Multiple fibroids. Otherwise, normal pelvic ultrasound. Reviewed, dictated and finalized at location A.
== END 2024-12-04 08:37 | disposition home or self-care (01) ==
LOC: MICIMG 08:36
PROVIDERS: PCP Nurse Practitioner; Visit Provider Nurse Practitioner
DX: T83.32XA Displacement of intrauterine contraceptive device, initial encounter (principal); D25.9 Leiomyoma of uterus, unspecified
CPT/HCPCS: 76830

== ENCOUNTER 2024-12-05 07:56 | Outpatient (CLI) | payer BC, SELFPAY ==
--- OUTSIDE RECORDS SUMMARY | 2024-12-05 08:06 | XMS_ITS | Patient Health Record ---
Author Organization [facility] [employer] Address [address] [place] [address] Care Team Providers Care Acting Instructor Name Role Phone Raheel LAMBERT, Bernarda Primary Care Provider Asya Viridiana López Unavailable [phone] Migration, Provider Unavailable Unavailable Allergies Allergen (clinical drug ingredient) Drug/Non Drug Allergy documented on EMR Reaction Allergy Type Onset Date Status risperidone risperiDONE Unknown Drug Allergy Act cameron fluconazole Fluconazole Unknown Drug Allergy Act cameron Reason For Referral No Information Medications Medication SIG (Take, Route, Frequency, Duration) Notes Start Date End Date Status PARoxetine HCl 30 MG 1 tablet in the mor vahid Oral Once a day for 30 days Active hydrOXYzine HCl 25 MG 1 tablet Oral twice a day for 30 days As needed Active amLODIPine Besy-Benazepril HCl 5-20 MG TAKE 1 CAPSULE BY MOUTH DAILY Oral for 90 Days Active Eszopiclone 2 MG Oral for 1 Days Active Indapamide 1.25 MG TAKE 1 TABLET BY NEAL TH DAILY Oral for 90 Days Active Propranolol HCl 20 MG TAKE 1 TABLET BY M OUTH EVERY 8 HOURS NEEDED FOR PALPITATIONS Oral for 20 Days Active Social History Tobacco Use: Social History Observation Description Date Details (start date - stop date) Never Smoker NA - NA Sex Assigned At : Social History Observation Description Sex Assigned At Female Tobacco Control (Standard) Question Answer Notes Tobacco use: Nonsmoker AUDIT-C (Standard) Question Answer Notes Interpretation Positive Did you have a drink contain ing alcohol in the past year? Yes How often did you have six o r more drinks on one occasion in the past year? 2 to 4 times a month (2 points) How many drinks did you have on a typical day when you were drinking in the past year? 3 or 4 drinks (1 point) How often did you have a dri nk containing alcohol in the past year? Declined to specify (0 point) Problems Problem Type SNOMED Code ICD Code Onset Dates Problem Status W/U Status Risk Notes Problem [id number] Major depressive disorder, recurrent severe without psychotic features (F33.2) Active confirmed Problem Generalized anxiety disorder (36982858) CATHY (generalized anxiety disorder) (F41.1) Active confirmed Problem Mood disorder (66060662) Mood disorder (F39) Active confirmed Vital Signs Heart Rate 89 /min 12/01/2024 Height-cm 157.51 cm 12/01/2024 Blood pressure diastolic 89 mm Hg 12/01/2024 Weight-kg 78.47 kg 12/01/2024 Height 62.01 in 12/01/2024 Blood pressure systolic 123 mm Hg 12/01/2024 Weight 173 lbs 12/01/2024 BMI 31.63 kg/m2 12/01/2024 Encounters Encounter Location Date Provider Diagnosis [address] [address] 11/01/2024 Viridiana Isaías Mood disorder F39 ; CATHY (generalized anxiety disorder) F41.1 and Benign essential HTN I10 [facility] [employer] [address] 12/01/2024 Viridiana Isaías CATHY (generalized anxiety disorder) F41.1 ; Major depressive disorder, recurrent severe without psychotic features F33.2 ; Benign essential HTN I10 ; Encounter for screening for cardiovascular disorders Z13.6 and Encounter for screening for depression Z13.31 [facility] [employer] [address] 02/05/2024 Provider Migration [facility] [employer] [address] 02/06/2024 Provider Migration Assessments Encounter Date Diagnosis (ICD Code) Assessment Notes Treatment Notes Treatment Clinical Notes Section Notes 11/01/2024 CATHY (generalized anxiety disorder) (ICD-10 - F41.1) 11/01/2024 Mood disorder (ICD-10 - F39) Previous records indicate history of bipolar diagnosis, pt denies diagnosed history although has appeared to be an unreliable historian of history. Medication history indicated previous scripts for mood stabilizers including quetiapine, lurasidone, risperdal which would support bipolar diagnosis. Patient is currently unsure of her current medications, although endorsing depressive and anxiety symptoms. Per recent medication fill history, PCP prescribed paroxetine 20mg but patient can not verify she is taking this on a consistant basis or at all. 12/01/2024 Major depressive disorder, recurrent severe without psychotic features (ICD-10 - F33.2) 12/01/2024 CATHY (generalized anxiety disorder) (ICD-10 - F41.1) 12/01/2024 Benign essential HTN (ICD-10 - I10) 11/01/2024 Benign essential HTN (ICD-10 - I10) 12/01/2024 Encounter for screening for cardiovascular disorders (ICD-10 - Z13.6) 12/01/2024 Encounter for screening for depression (ICD-10 - Z13.31) 11/01/2024 Other Discussed with patient no medication adjustments today, as I am not sure what she is currently prescribed or taking. Encouraged to keep track of current medications and compliance. Will request records from PCP for previous medications and history for further treatment (reports previous psychiatric treatment although unsure of name or when apts were, so unable to get previous psych evaluations). -Assessment and treatment plan reviewed with patient. -Compliance with treatment plan importance discussed. -Discussed the risks/benefits of this medication -Discussed medication side effects. -Contact office if symptoms worsen. -Discussed that it can take up to 6-8 weeks to see full therapeutic effects of psychotropic medications. -Crisis prevention hotline 988. 12/01/2024 Other Increase paxil to 30mg daily for mood, anxiety Patient educated on all medications including potential benefits, side effects, risks. Educated on proper dosing schedule and importance of compliance. Cont counseling -Assessment and treatment plan reviewed with patient. -Compliance with treatment plan importance discussed. -Discussed the risks/benefits of this medication -Discussed medication side effects. -Contact office if symptoms worsen. -Discussed that it can take up to 6-8 weeks to see full therapeutic effects of psychotropic medications. -Crisis prevention hotline 988. Plan Of Treatment Next Appt Details Provider Name:Viridiana Metz, 12/29/2024 08:45:00 AM, [address], [address], [place], [address], Insurance Providers Payer Name Payer Address Payer Phone Subscriber Number Group Number Insured Name Patient Relationship to Insured Coverage Start Date Coverage End Date [facility] [address] [place] [address] [id number], SHAMONE Self - patient is the insured Medical (General) History Medical History History ICD Code Severe recurrent major depression withou t psychotic features Hyperthyroidism CATHY Benign Essential HTN Non morbid obesity Past Psychiatric History: Anxiety Disord er,Major Depressive Episode abdominal aortic aneurysm: No atrial fibrillation: No chronic fatigue syndrome: No essential tremor: No hyperlipidemia: No hypertension: No Parkinson's disease: No restless leg syndrome: No stroke: No subdural hematoma: No type 1 diabetes mellitus: No type 2 diabetes mellitus: No vitamin B12 deficiency: No vitamin D deficiency: No
--- OUTSIDE RECORDS SUMMARY | 2024-12-05 08:06 | XMS_ITS | Patient Health Record ---
Author Organization [facility] Address [address] [place] [address] Care Team Providers Care Outsole Cementer Name Role Phone UNKNOWN, UNKNOWN Primary Care Provider Unavailab Ailyn Andrews Unavailable [phone] Allergies Allergen (clinical drug ingredient) Drug/Non Drug Allergy documented on EMR Reaction Allergy Type Onset Date Status Latex Latex Unknown Allergy Active Reason For Referral No Information Medications Medication SIG (Take, Route, Frequency, Duration) Notes Start Date End Date Status Mesalamine 400 MG TAKE 2 CAPSULES BY M OUTH TWICE DAILY Oral for 30 Days Active Omeprazole 40 MG Oral for 90 Days Active amLODIPine Besy-Benazepril HCl 5-10 MG Oral for 90 Active Trintellix 10 MG Oral for 30 A ctive Benzonatate 100 MG Oral for 10 Active Social History Tobacco Use: Social History Observation Description Date Details (start date - stop date) Never Smoker NA - NA Tobacco Use/Smoking Question Answer Notes Are you a nonsmoker Problems Problem Type SNOMED Code ICD Code Onset Dates Problem Status W/U Status Risk Notes Problem [id number] Hammertoe of right foot (M20.41) Active confirmed Problem 049405714 Hammertoe of left foot (M20.42) Active confirmed Plan Of Treatment No Information Insurance Providers Payer Name Payer Address Payer Phone Subscriber Number Group Number Insured Name Patient Relationship to Insured Coverage Start Date Coverage End Date [facility] [address] [place] [address] [phone] [id number] Huma Chong Self - patient is the insured Medical (General) History Medical History History ICD Code High blood pressure Surgical History Surgery Date(Month/Year)
--- OUTSIDE RECORDS SUMMARY | 2024-12-05 08:06 | XMS_ITS ---
Author Organization [facility] [employer] [facility] Address [address] [facility] [address] [facility] [address] [place] [address] Care Team Providers Care Safe And Vault Service Mechanic Name Role Phone Bernarda Pickering MD Primary Care Provider Asya vailaViridiana Frias Unavailable [phone] Migration, Provider Unavailable Unavailable Allergies Allergen (clinical drug ingredient) Drug/Non Drug Allergy documented on EMR Reaction Allergy Type Onset Date Status risperidone risperiDONE Unknown Drug Allergy Act cameron REASON FOR VISIT EMR-Tahir Medications Medication SIG (Take, Route, Fr equency, Duration) Notes Start Date End Date Status RisperDAL 1 MG Oral Activ e Asacol HD 800 MG Oral Act cameron SEROquel XR 200 MG Oral A ctive SEROquel XR 150 MG Oral A ctive Cymbalta 60 MG Oral Activ e Latuda 40 MG Oral Active Social History Sex Assigned At : Social History Observation Description Sex Assigned At Female Encounters Encounter Location Date Provider Diagnosis [facility] [employer] [place] [id number] [facility] [address] [facility] [address] [place] [address] 02/06/2024 Provider Migration Plan Of Treatment Next Appt Details Provider Name:Viridiana Metz, 12/29/2024 08:45:00 AM, [address], [facility] [address], [place], [address], Progress Notes * CAROLINESILVA CORONADOOB:[birth year] (48 yo F)Acc No.[id number]:02/06/2024 Patient: ALEKSANDAR MARCH :1975 A ge:48 Y S ex:Female Address:[address] [place] [address] Subjective: * Chief Complaints: * E MR-Tahir * Medical History: * Surgical History: * Hospitalization/Major Diagno stic Procedure: * Medications: T akingSEROquel XR 200 MG Tablet Extended Release 24 Hour Oral SEROquel XR 150 MG Tablet Extended Release 24 Hour Oral Cymbalta 60 MG Capsule Delayed Release Particles Oral Latuda 40 MG Tablet Oral RisperDAL 1 MG Tablet Oral Asacol HD 800 MG Tablet Delayed Release Oral Taking SEROquel XR 200 MG Tablet Extended Release 24 Hour Oral Taking SEROquel XR 150 MG Tablet Extended Release 24 Hour Oral Taking Cymbalta 60 MG Capsule Delayed Release Particles Oral Taking Latuda 40 MG Tablet Oral Taking RisperDAL 1 MG Tablet Oral Taking Asacol HD 800 MG Tablet Delayed Release Oral * Allergies: r isperiDONE: Allergy Objective: * Vitals: * Physical Examination: Assessment: Plan: * Treatment: * Procedure Codes: * true * Date: Generated for Chetan carey/Deandra/Nikita on: 0 12/05/2024 08:06 AM T
--- OUTSIDE RECORDS SUMMARY | 2024-12-05 08:07 | XMS_ITS ---
Author Organization [facility] Address [address] [place] [address] Care Team Providers Care [place] Gold Attendant Name Role Phone Bernarda Pickering MD Primary Care Provider Asya Viridiana López Unavailable [phone] Allergies Allergen (clinical drug ingredient) Drug/Non Drug Allergy documented on EMR Reaction Allergy Type Onset Date Status risperidone risperiDONE Unknown Drug Allergy Act cameron fluconazole Fluconazole Unknown Drug Allergy Act cameron REASON FOR VISIT f/u, Depression screening positive, Depression screening positive, Follow up psychological reason Medications Medication SIG (Take, Route, Frequency, Duration) [...] Problem Status W/U Status Risk Notes Problem [id number] Major depressive disorder, recurrent severe without psychotic features (F33.2) Active confirmed Vital Signs Blood pressure systolic 123 mm Hg 12/02/19 25 Blood pressure diastolic 89 mm Hg 025 Heart Rate 89 /min 12/01/2024 Height 62.01 in 12/01/2024 Weight 173 lbs 12/01/2024 BMI 31.63 kg/m2 12/01/2024 Height-cm 157.51 cm 12/01/2024 Weight-kg 78.47 kg 12/01/2024 Encounters [facility]counter [facility] [address] [address] 12/01/2024 Viridiana Metz CATHY (generalized anx iety disorder) F41.1 ; Major depressive disorder, recurrent severe without psychotic features F33.2 ; Benign essential HTN I10 ; Encounter for screening for cardiovascular disorders Z13.6 and Encounter for screening for depression Z13.31 Assessments Encounter Date Diagnosis (ICD Code) Assessment Notes Treatment Notes Treatment Clinical Notes Section Notes 12/01/2024 CATHY (generalized anxiety disorder) (ICD-10 - F41.1) 12/01/2024 Major depressive disorder, recurrent severe without psychotic features (ICD-10 - F33.2) 12/01/2024 Benign essential HTN (ICD-10 - I10) 12/01/2024 Encounter for screening for cardiovascular disorders (ICD-10 - Z13.6) 12/01/2024 Encounter for screening for depression (ICD-10 - Z13.31) 12/01/2024 Other Increase paxil to 30mg daily [...] effects of psychotropic medications. -Crisis prevention hotline 818. Plan Of Treatment Medication Medication Name Sig Start Date Stop Date Notes PARoxetine HCl 30 MG 1 tablet in the mor vahid Oral Once a day for 30 days hydrOXYzine HCl 25 MG 1 tablet Oral twic e a day for 30 days Treatment Notes Assessment Notes Other Increase paxil to 30mg daily for mood, anxiety Patient educated on all medications including potential benefits, side effects, risks. Educated on proper dosing schedule and importance of compliance. Cont counseling Next Appt Details Follow Up: 4 Weeks, Reason: med f/u. medication follow up Provider Name:Viridiana Metz, 12/29/2024 08:45:00 AM, [address], [facility] [address], [place], [address], Progress Notes * ALEKSANDAR VELAZQUEZ GDOB: (49 yo F)Acc No.[id number]:12/01/2024 Patient: ALEKSANDAR MARCH G Provider: Audie METZ PMHNP :1975 A ge:49 Y S ex:Female Date:12/01/2024 Address:[address] [place], [place] [id number] Pcp:Bernarda Pickering MD Subjective: * Chief Complaints: * F /uDepression screening positiveDepression screening positiveFollow up psychological reason * HPI: P ast Psychiatric Hospitalizations: Previous psychiatric hospitalizations P revious Psychiatric Hospitalization Y es H ow Many Psychiatry Hospitalizations Have You Had in the past? 1 W hen were you last hospitalized? month and year 0 01/2009 W hat was the cause of your psychiatric hospitalizations? D epression,,Suicidal thoughts,Suicidal attempt Past History of Suicidal attempt H ave you ever attempted suicide in the past?Yes M ethod of suicide attempt O verdose on medication Social hx: . Has 4 children. 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 Medical hx: Ulcerative colitis, HTN Past psychiatric hx- Past [facility] admissions/IOP/PHP: 2009 admission for suicide attempt Previous suicide attempts: 2009 OD Previous medications: pt does not know previous medications (per chart- quetiapine, risperdal, lurasidone). Wellbutrin (SI) Supplements: none Trauma/Abuse: none Substance use hx: denies Nicotine: denies Alcohol: social. H istory of Presenting Problem: Anxiety w ith excessive worry, with restlessness, which has been long-standing. Depression w ith decreased concentration, with decreased energy, with sad mood, with isolative behavior, which has been long-standing. Mood lability n o hx scott. Psychosis r eports she previously has heard voices of previous family members that have . Suicidal ideation d enies. Psychotherapy N athan- weekly . Here for follow up. No medication changes made last apt. States she has recently reached out to a couple of people she has not spoken to in several years, I came to the realization I was isolating myself and I think it was making me worse . States I am still depressed, I know that for sure but it is okay . Continues to report decreased concentration, poor motivation, low mood. A couple of weeks ago had a particularily bad day so she drove up to [place] to be with her mom, states I just needed a hug . Was having passive suicidal ideation, although denied having plan or intent. Denies current suicidal ideation. D epression Screening: CATHY-7 (2018 Edition) F eeling nervous, anxious, or on edge N early every day N ot being able to stop or control worrying?Nearly every day W orrying too much about different things N early every day T rouble relaxing S ever B eing so restless that it is hard to sit still N ot at all B ecoming easily annoyed or irritable S ever F eeling afraid as if something awful might happen S ever I f you checked any problems, how difficult have they made it for you to do your work, take care of things at home, or get along with other people? S omewhat difficult I nterpretation of Total ( 10 to 14) Moderate C [place]-Suicide Severity Rating Scale: Suicide Risk (CSRS-screener) i n the past one month Have you wished you were or wished you could go to sleep and not wake up? Y es i n the past one month Have you actually had any thoughts of killing yourself? Y es H ave you been thinking about how you might do this? N o H ave you had these thoughts and had some intention of acting on them? Y es H ave you started to work out or worked out the details of how to kill yourself? Do you intend to carry out this plan? N o D epression screening: PHQ-9 L ittle interest or pleasure in doing things?Nearly every day F eeling down, depressed, or hopeless N early every day T rouble falling or staying asleep, or sleeping too much N early every day F eeling tired or having little energy N early every day P oor appetite or overeating N ot at all F eeling bad about yourself or that you are a failure, or have let yourself or your family down N early every day T rouble concentrating on things, such as reading the newspaper or watching television S M oving or speaking so slowly that other people could have noticed; or the opposite, being so fidgety or restless that you have been moving around a lot more than usual S T houghts that you would be better off or of hurting yourself in some way N ot at all T otal Score 1 7 I nterpretation M oderately Severe Depression Intervention D epression Screening Findings P ositve F ollow-Up for Depression M entmt health treatment assessment, Patient follow-up to return when and if necessary S uicide Risk Assessment Performed _ A dditional Evaluation for Depression P sychiatric interview and evaluation N jossie of the standardized tool used for adult depression screening: [facility] (PHQ-9) * ROS: G eneral / Constitutional: Patient denies c hange in appetite, headache, lightheadedness, sleep disturbance, weight gain, weight loss. C ardiovascular: Patient denies p alpitations. G astrointestinal: Patient denies n ausea, vomiting, constipation. ? N eurologic: Patient denies c onfusion, tic, tremor. P sychiatric: Patient denies a uditory / visual hallucinations, delusions, suicidal thoughts, scott, psychosis, involuntary movements. P atient complains of a nxiety, difficulty sleeping, depressed mood. C earnest S ee HPI for details. P atient not eligible due to active diagnosis of hypertension: G 9744Performance Met: N ormal blood pressure reading documented, follow-up not required ( G8783). * Medical History: * Surgical History: * Hospitalization/Major Diagno stic Procedure: * Family History: F ather: None. M aternal Aunt: None. M aternal Uncle: None. P aternal Aunt: None.?Mother: None. B rother: None. S ister: None. S on: None. D darwinhtmando: None. * Social History: T obacco Use: T obacco Control (Standard) T obacco use: N onsmoker D rug/Alcohol: D rugs H ave you used drugs other than those for medical reasons in the past 12 months? N o AUDIT-C (Standard) D id you have a drink containing alcohol in the past year? Y es H ow often did you have six or more drinks on one occasion in the past year? 2 to 4 times a month (2 points) H ow many drinks did you have on a typical day when you were drinking in the past year? 3 or 4 drinks (1 point) H ow often did you have a drink containing alcohol in the past year? 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 Safety issues A re there any firearms in the house? N o Advance Care Planning A re you your own decision-maker Y es D o you have Power of Rheumatology Specialist for Health or Medical? N o S ocial History: H ousehold M arital Status: D ivorced N umber of Adults in household: 1 N umber of Children in Household: 1 L evel of Education: F [employer] * Medications: T akingamLODIPine Besy-Benazepril HCl 5-20 MG Capsule TAKE 1 CAPSULE BY MOUTH DAILY Oral Indapamide 1.25 MG Tablet TAKE 1 TABLET BY MOUTH DAILY Oral Propranolol HCl 20 MG Tablet TAKE 1 TABLET BY MOUTH EVERY 8 HOURS NEEDED FOR PALPITATIONS Oral Eszopiclone 2 MG Tablet Oral hydrOXYzine HCl 25 MG Tablet TAKE 1 TABLET BY MOUTH TWICE DAILY NEEDED FOR INSOMNIA Oral PARoxetine HCl 20 MG Tablet Oral Taking amLODIPine Besy-Benazepril HCl 5-20 MG Capsule TAKE 1 CAPSULE BY MOUTH DAILY Oral Taking Indapamide 1.25 MG Tablet TAKE 1 TABLET BY MOUTH DAILY Oral Taking Propranolol HCl 20 MG Tablet TAKE 1 TABLET BY MOUTH EVERY 8 HOURS NEEDED FOR PALPITATIONS Oral Taking Eszopiclone 2 MG Tablet Oral Taking hydrOXYzine HCl 25 MG Tablet TAKE 1 TABLET BY MOUTH TWICE DAILY NEEDED FOR INSOMNIA Oral Taking PARoxetine HCl 20 MG Tablet Oral DiscontinuedhydrOXYzine HCl 25 MG Tablet TAKE 1 TABLET BY MOUTH TWICE DAILY NEEDED FOR INSOMNIA Oral Medication List reviewed and reconciled with the patientDiscontinued hydrOXYzine HCl 25 MG Tablet TAKE 1 TABLET BY MOUTH TWICE DAILY NEEDED FOR INSOMNIA Oral Medication List reviewed and reconciled with the patient * Allergies: r isperiDONE: AllergyFluconazoleno[Allergies Verified] Objective: * Vitals: B P:123/89mm Hg, HR:89/min, Wt:173lbs, Wt-k.47 kg, Ht: 62.01 in, Ht-cm: 157.51 cm, BMI:31.63Index, Body Surface Area: 1.85. * Examination: P sychiatry: Appearance: w ell-groomed. Abnormal body movements: n one. Affect / mood: d epressed. Attention: g ood. Attitude: c ooperative. Homicidal ideation: n one. Suicidal ideation: n one. Degree of awareness of surroundings: w ithin normal limits.? Delusions: n o. Hallucinations: n o. Insight: g ood. Judgement: g ood. Orientation: a wake, alert and oriented x 3. Perceptual disorders: n o perceptual disorder noted. Psychomotor activity: w ithin normal range. Speech / language: n ormal rate, volume, and articulation (RVR), clear and coherent, appropriate pitch/modulation. Thought content: a ppropriate. Thought process: i ntact. Assessment: * Assessment: 1. G AD (generalized anxiety disorder) - F41.1 (Primary) 2 . M ajor depressive disorder, recurrent severe without psychotic features - F33.2 3 . B enign essential HTN - I10 4 . E ncounter for screening for cardiovascular disorders - Z13.6 5 . E ncounter for screening for depression - Z13.31 Plan: * Treatment: 2. O thers Notes: Increase paxil to 30mg daily for mood, anxiety Patient educated on all medications including potential benefits, side effects, risks. Educated on proper dosing schedule and importance of compliance. Cont counseling Clinical Notes: -Assessment and treatment plan reviewed with patient. -Compliance with treatment plan importance discussed. -Discussed the risks/benefits of this medication -Discussed medication side effects. -Contact office if symptoms worsen. -Discussed that it can take up to 6-8 weeks to see full therapeutic effects of psychotropic medications. -Crisis prevention hotline 988. * Procedure Codes: G 8783 NORMAL BP READING DOC F/U NOT [id number] VISIT COMPLEXITY INHERENT TO ONGOING CARE RELATED TO A PATIENT'S SINGLE, SERIOUS CONDITION OR A COMPLEX [id number] BEHAV ASSMT W/SCORE & DOCD/STAND [id number] CLIN DEPRESSION SCREEN [id number] MOST RECENT SYSTOLIC BP < 140MM [id number] MOST RECENT DIASTOLIC BP < 90MM HG * Follow Up: 4 Weeks (Reason: med f/u. medication follow up) * Billing Information: * Visit Code: 71055 OFFICE OUTPATIENT VISIT 25 MINUTES DETAILED HISTORY AND EXAM/MODERATE MEDICAL DECISION MAKING. * Procedure Codes: G8783 NORMAL BP READING DOC F/U NOT RQR. G2211 VISIT COMPLEXITY INHERENT TO ONGOING CARE RELATED TO A PATIENT'S SINGLE, SERIOUS CONDITION OR A COMPLEX CONDITION. 21664 BEHAV ASSMT W/SCORE & DOCD/STAND INSTRUMENT. G8431 CLIN DEPRESSION SCREEN DOC. G8752 MOST RECENT SYSTOLIC BP < 140MM HG. G8754 MOST RECENT DIASTOLIC BP < 90MM HG. * Sign off status: Completed true * Provider: FRED ARRINGTON Date: 12/01/2024 Generated for Chetan Saldivra/Tannaitting on: 12/05/2024 08:06 AM CDT History and Physical Notes * HPI (History of Present Illness) Category Sub-Category Detail Notes Category Not es History of Presenting Problem Anxiety with excessive worry, with restlessness, which has been long-standing Here for follow up. No medication changes made last apt. States she has recently reached out to a couple of people she has not spoken to in several years, I came to the realization I was isolating myself and I think it was making me worse . States I am still depressed, I know that for sure but it is okay . Continues to report decreased concentration, poor motivation, low mood. A couple of weeks ago had a particularily bad day so she drove up to [place] to be with her mom, states I just needed a hug . Was having passive suicidal ideation, although denied having plan or intent. Denies current suicidal ideation. Depression with decreased dexter ntration, with decreased energy, with sad mood, with isolative behavior, which has been long-standing Suicidal ideation denies Psychosis reports she previous ly has heard voices of previous family members that have Mood lability no hx scott Psychotherapy Julian- weekly Past Psychiatric Hospitalizations Previous psychiatric hospitalizations Previous Psychiatric Hospitalization: Yes Social hx: . Has 4 children. 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 Medical hx: Ulcerative colitis, HTN Past psychiatric hx- Past [facility] admissions/IOP/PHP: 2009 admission for suicide attempt Previous suicide attempts: 2009 OD Previous medications: pt does not know previous medications (per chart- quetiapine, risperdal, lurasidone). Wellbutrin (SI) Supplements: none Trauma/Abuse: none Substance use hx: denies Nicotine: denies Alcohol: social How Many Psychiatry Hospitalizations Have You Had in the past?: 1 When were you last hospitalized? month a nd year: 01/2009 What was the cause of your p sychiatric hospitalizations?: Depression,,Suicidal thoughts,Suicidal attempt Past History of Suicidal attempt Have yo u ever attempted suicide in the past: Yes Method of suicide attempt: Overdose on medication Depression screening PHQ-9 Little inte rest or pleasure in doing things: Nearly every day Feeling down, depressed, or hopeless: Ne elieser every day Trouble falling or staying asleep, or sl eeping too much: Nearly every day Feeling tired or having little energy: N early every day Poor appetite or overeating: Not at all Feeling bad about yourself o r that you are a failure, or have let yourself or your family down: Nearly every day Trouble concentrating on thi ngs, such as reading the newspaper or watching television: Several days Moving or speaking so slowly that other people could have noticed; or the opposite, being so fidgety or restless that you have been moving around a lot more than usual: Several days Thoughts that you would be b maria elena off or of hurting yourself in some way: Not at all Total Score: 17 Interpretation: Moderately Severe Depres marina Intervention Depression Screening Findings: P osshermanve Follow-Up for Depression: [facility] treatment assessment, Patient follow-up to return when and if necessary Suicide Risk Assessment Performed: Additional Evaluation for Depression: Ps ychiatric interview and evaluation Name of the standardized too l used for adult depression screening:: Patient Health Questionnaire (PHQ-9) Depression Screening CATHY-7 (2018 Edition) Feelin g nervous, anxious, or on edge: Nearly every day Not being able to stop or control worryi ng: Nearly every day Worrying too much about different things : Nearly every day Trouble relaxing: Several days Being so restless that it is hard to sit still: Not at all Becoming easily annoyed or irritable: Se veral days Feeling afraid as if something awful andrea ht happen: Several days If you checked any problems, how difficult have they made it for you to do your work, take care of things at home, or get along with other people?: Somewhat difficult Interpretation of Total: (10 to 14) Mode rate [place]-Suicide Severity Rating Scale Suicide Risk (CSRS-screener) in the past one month Have you wished you were or wished you could go to sleep and not wake up?: Yes in the past one month Have y ou actually had any thoughts of killing yourself?: Yes Have you been thinking about how you might do this?: No Have you had these thoughts and had some intention of acting on them?: Yes Have you started to work out or worked out the details of how to kill yourself? Do you intend to carry out this plan?: No Examination Category Sub-Category Detail Notes Category Not es Psychiatry Appearance: well-groomed Attitude: cooperative Psychomotor activity: within normal rang e Abnormal body movements: none Attention: good Degree of awareness of surroundings: wit hin normal limits Orientation: awake, alert and ilsa ented x 3 Affect / mood: depressed Speech / language: normal rate, volume, and articulation (RVR), clear and coherent, appropriate pitch/modulation Insight: good Judgement: good Thought process: intact Thought content: appropriate Perceptual disorders: no perceptual diso rder noted Suicidal ideation: none Homicidal ideation: none Delusions: no Hallucinations: no
--- OUTSIDE RECORDS SUMMARY | 2024-12-05 08:07 | XMS_ITS | CONTINUITY OF CARE DOCUMENT ---
Author Name sammie cochran Address Unknown Organization [facility] Address [address] [place] [address] Phone [phone] Care Team Providers Care Saddle Stitch Operator Name Role Phone sammie cochran Unavailable Unavailable INSURANCE PROVIDERS Payer name Policy type / Coverage type Hemant red libertarian ID [id number] Other [id number]
--- OUTSIDE RECORDS SUMMARY | 2024-12-05 08:07 | XMS_ITS ---
Author Organization [facility] Sophiris Bio Address [address] [place] [address] Care Team Providers Care Inside Account Representative Name Role Phone Bernarda Pickering MD Primary Care Provider Asya Viridiana López Unavailable [phone] Allergies Allergen (clinical drug ingredient) Drug/Non Drug Allergy documented on EMR Reaction Allergy Type Onset Date Status risperidone risperiDONE Unknown Drug Allergy Act cameron fluconazole Fluconazole Unknown Drug Allergy Act cameron REASON FOR VISIT New Patient PCP retired suggested she comes here, Depression screening positive, MIPS diagnosis of HTN Medications Medication SIG (Take, Route, Frequency, Duration) Notes Start Date End Date Status PARoxetine HCl 20 MG Oral Active hydrOXYzine HCl 25 MG TAKE 1 TABLET BY M OUTH TWICE DAILY NEEDED FOR INSOMNIA Oral Active Eszopiclone 2 MG Oral for 1 Days Active hydrOXYzine HCl 25 MG TAKE 1 TABLET BY M OUTH TWICE DAILY NEEDED FOR INSOMNIA Oral for 30 Days Active Propranolol HCl 20 MG TAKE 1 TABLET BY M OUTH EVERY 8 HOURS NEEDED FOR PALPITATIONS Oral for 20 Days Active amLODIPine Besy-Benazepril HCl 5-20 MG TAKE 1 CAPSULE BY MOUTH DAILY Oral for 90 Days Active Indapamide 1.25 MG TAKE 1 TABLET BY NEAL TH DAILY Oral for 90 Days Active Social History Tobacco Use: Social [...] Problem Status W/U Status Risk Notes Problem Mood disorder (03844268) Mood disorder (F39) Active confirmed Problem Generalized anxiety disorder (29543168) CATHY (generalized anxiety disorder) (F41.1) Active confirmed Vital Signs Blood pressure systolic 151 mm Hg 11/01/19 25 Blood pressure diastolic 89 mm Hg 025 Heart Rate 89 /min 11/01/2024 Height 62.01 in 11/01/2024 Weight 182.4 lbs 11/01/2024 BMI 33.35 kg/m2 11/01/2024 Height-cm 157.51 cm 11/01/2024 Weight-kg 82.74 kg 11/01/2024 Encounters Encounter Location Date Provider Diagnosis [facility] [employer] [address] [facility] [address] [place] [address] 11/01/2024 Viridiana Isaías Mood disorder F39 ; CATHY (generalized anxiety disorder) F41.1 and Benign essential HTN I10 Assessments Encounter Date Diagnosis (ICD Code) Assessment Notes Treatment Notes Treatment Clinical Notes Section Notes 11/01/2024 Mood disorder (ICD-10 - F39) Previous [...] on a consistant basis or at all. 11/01/2024 CATHY (generalized anxiety disorder) (ICD-10 - F41.1) 11/01/2024 Benign essential HTN (ICD-10 - I10) 11/01/2024 Other Discussed with patient no medication [...] -Crisis prevention hotline 988. Plan Of Treatment Medication Medication Name Sig Start Date Stop Date Notes PARoxetine HCl 20 MG Oral hydrOXYzine HCl 25 MG TAKE 1 TABLET BY M OUTH TWICE DAILY NEEDED FOR INSOMNIA Oral Treatment Notes Assessment Notes Other Discussed with patient no medication adjustments today, as I am not sure what she is currently prescribed or taking. Encouraged to keep track of current medications and compliance. Will request records from PCP for previous medications and history for further treatment (reports previous psychiatric treatment although unsure of name or when apts were, so unable to get previous psych evaluations). Next Appt Details Follow Up: 3 Weeks, Reason: medication follow up Provider Name:Viridiana Metz, 12/29/2024 08:45:00 AM, [facility] [facility] [address], [facility] [address], [place], [address], Progress Notes * ALEKSANDAR VELAZQUEZ GDOB: (49 yo F)Acc No.[id number]:11/01/2024 Patient: ALEKSANDAR MARCH Provider: PITA ARRINGTONHNP :1975 A ge:49 Y S ex:Female Date:11/01/2024 Address:[address] [place], [place] [id number] Pcp:Bernarda Pickering MD Subjective: * Chief Complaints: * N ew Patient PCP retired suggested she comes hereDepression screening positiveMIPS diagnosis of HTN * HPI: D epression Screening: CATHY-7 (2018 Edition) F eeling nervous, anxious, or on edge S everal days N ot being able to stop or control worrying?Nearly every day W orrying too much about different things N early every day T rouble relaxing M ore than half the days B eing so restless that it is [...] home, or get along with other people? V samson difficult I nterpretation of Total ( 10 to 14) Moderate C [place]-Suicide Severity Rating Scale: Suicide Risk (CSRS-screener) i n the past one month Have you wished you were or wished you could go to sleep and not wake up? Y es i n the past one month Have you actually had any thoughts of killing yourself? Y es H ave you started to work out or worked out the details of how to kill yourself? Do you intend to carry out this plan? N o H ave you had these thoughts and had some intention of acting on them? N o H ave you been thinking about how you might do this? N o D epression screening: PHQ-9 L ittle interest or pleasure in doing things?More than half the days F eeling down, depressed, or hopeless M ore than half the days T rouble falling or staying asleep, or sleeping too much M ore than half the days F eeling tired or having little energy N early every day P oor appetite or overeating N ot at all F eeling bad about yourself or that you are a failure, or have let yourself or your family down M ore than half the days T rouble concentrating on things, such as reading the newspaper or watching television N early every day M oving or speaking so slowly that other people could have noticed; or the opposite, being so fidgety or restless that you have been moving around a lot more than usual S ever T houghts that you would be better off or of hurting yourself in some way S ever (Consider Suicide Assessment Risk) T otal Score 1 6 I nterpretation M oderately Severe Depression Intervention D epression Screening Findings P alannah Beckford ollow-Up for Depression M ental health treatment assessment, Patient follow-up to return when and if necessary S uicide Risk Assessment Performed 0 11/01/2024 A dditional Evaluation for Depression P sychiatric interview and evaluation N jossie of the standardized tool used for adult depression screening: P atient Health Questionnaire (PHQ-9) P ast Psychiatric Hospitalizations: Previous psychiatric hospitalizations [...] verdose on medication Social hx: . Has one daughter. Employed in [employer] service. Medical hx: Ulcerative colitis, HTN Past psychiatric hx- Past [facility] admissions/IOP/PHP: 2008 admission for suicide attempt Previous suicide attempts: 2009 OD Previous medications: pt does not know previous medications (per chart- quetiapine, risperdal, lurasidone). Supplements: none Trauma/Abuse: none Substance use hx: [...] that have . Suicidal ideation d enies. Here to establish care. Referred here by PCP for depression and anxiety. She is a poor historian to psychiatric and medication hsitory, unsure of past dx and current medication. Reports depression started when she got in 2019. Per records, she is currently on paroxetine per PCP. States depression has evolved to anxiety, paranoia, I feel like everyone wants things to be bad for me, everyone has a hidden agenda . Denies panic attacks recently associated with increase in anxiety. R eports her ex made me feel crazy; I dont trust anyone , he would gaslight her when she suspected he was cheating and reassured he wasn't, although later confirmed that he was which resulted in the divorce. She is unsure if she is taking her medications, that is a good question . Reports she previously saw psychiatrist, although unsure name of psychiatrist or when this occured. Does report an inpatient psychiatric admission around 2008 for suicide attempt by OD, denies recent suicidal ideation. R eports depression symptoms include low mood, low motivation, poor energy, feeling hopeless and helpless at times. Sleep is fair, per records was prescribed Lunesta, pt unsure if she is taking this; it might by the medicine I just found under my seat in my car . Getting about 6 hours nightly, difficulty falling asleep some nights. Appetite is fair. * ROS: G eneral / Constitutional: Patient [...] nxiety, difficulty sleeping, depressed mood. C earnest [place] [facility] for details. P atient not eligible due to active diagnosis of hypertension: G 9744. * Medical History: * Surgical History: * Hospitalization/Major Diagno stic Procedure: * Family History: F ather: None. M aternal Aunt: None. M aternal Uncle: None. P aternal Aunt: None.?Mother: None. B rother: None. S ister: None. S on: None. D aughter: None. 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 Safety issues A re there any firearms in the house? N o Advance Care Planning A re you your own decision-maker Y es D o you have Power of Bryologist for Health or Medical? N o S ocial History: H ousehold M arital Status: D ivorced N umber of Adults in household: 1 N umber of Children in Household: 1 L evel of Education: F [employer] * Medications: T akingamLODIPine Besy-Benazepril HCl 5-20 MG Capsule TAKE 1 CAPSULE BY MOUTH DAILY Oral Indapamide 1.25 MG Tablet TAKE 1 TABLET BY MOUTH DAILY Oral hydrOXYzine HCl 25 MG Tablet TAKE 1 TABLET BY MOUTH TWICE DAILY NEEDED FOR INSOMNIA Oral Propranolol HCl 20 MG Tablet TAKE 1 TABLET BY MOUTH EVERY 8 HOURS NEEDED FOR PALPITATIONS Oral PARoxetine HCl 20 MG Tablet Oral Eszopiclone 2 MG Tablet Oral hydrOXYzine HCl 25 MG Tablet TAKE 1 TABLET BY MOUTH TWICE DAILY NEEDED FOR INSOMNIA Oral Taking amLODIPine Besy-Benazepril HCl 5-20 MG Capsule TAKE 1 CAPSULE BY MOUTH DAILY Oral Taking Indapamide 1.25 MG Tablet TAKE 1 TABLET BY MOUTH DAILY Oral Taking hydrOXYzine HCl 25 MG Tablet TAKE 1 TABLET BY MOUTH TWICE DAILY NEEDED FOR INSOMNIA Oral Taking Propranolol HCl 20 MG Tablet TAKE 1 TABLET BY MOUTH EVERY 8 HOURS NEEDED FOR PALPITATIONS Oral Taking PARoxetine HCl 20 MG Tablet Oral Taking Eszopiclone 2 MG Tablet Oral Taking hydrOXYzine HCl 25 MG Tablet TAKE 1 TABLET BY MOUTH TWICE DAILY NEEDED FOR INSOMNIA Oral DiscontinuedSEROquel XR 200 MG Tablet Extended Release 24 Hour Oral SEROquel XR 150 MG Tablet Extended Release 24 Hour Oral Cymbalta 60 MG Capsule Delayed Release Particles Oral Latuda 40 MG Tablet Oral RisperDAL 1 MG Tablet Oral Asacol HD 800 MG Tablet Delayed Release Oral Medication List reviewed and reconciled with the patientDiscontinued SEROquel XR 200 MG Tablet Extended Release 24 Hour Oral Discontinued SEROquel XR 150 MG Tablet Extended Release 24 Hour Oral Discontinued Cymbalta 60 MG Capsule Delayed Release Particles Oral Discontinued Latuda 40 MG Tablet Oral Discontinued RisperDAL 1 MG Tablet Oral Discontinued Asacol HD 800 MG Tablet Delayed Release Oral Medication List reviewed and reconciled with the patient * Allergies: r isperiDONE: AllergyFluconazoleno[Allergies Verified] Objective: * Vitals: B P:151/89mm Hg, HR:89/min, Wt:182.4lbs, Wt-k.74 kg, Ht: 62.01 in, Ht-cm: 157.51 cm, BMI:33.35Index, Body Surface Area: 1.9. * Examination: P sychiatry: Appearance: w ell-groomed. Abnormal body movements: n one. Affect / mood: a ppropriate. Attention: g ood. Attitude: c ooperative. Homicidal [...] disorder) - F41.1 (Primary) 2 . M ood disorder - F39 3 . B enign essential HTN - I10 Plan: * Treatment: 2. M ood disorder Clinical Notes: Previous records indicate history of bipolar diagnosis, [...] on a consistant basis or at all. 3. O thers Notes: Discussed with patient no medication adjustments today, as I am not sure what she is currently prescribed or taking. Encouraged to keep track of current medications and compliance. Will request records from PCP for previous medications and history for further treatment (reports previous psychiatric treatment although unsure of name or when apts were, so unable to get previous psych evaluations). Clinical Notes: -Assessment and treatment plan reviewed with patient. -Compliance with treatment plan importance discussed. -Discussed the risks/benefits of this medication -Discussed medication side effects. -Contact office if symptoms worsen. -Discussed that it can take up to 6-8 weeks to see full therapeutic effects of psychotropic medications. -Crisis prevention hotline 988. * Procedure Codes: 9 6127 BEHAV ASSMT W/SCORE & DOCD/STAND [id number] Pt not aura d/t act dig [id number] PSYCHIATRIC DIAGNOSTIC EVAL W/MEDICAL [id number] VISIT COMPLEXITY INHERENT TO ONGOING CARE RELATED TO A PATIENT'S SINGLE, SERIOUS CONDITION OR A COMPLEX [id number] CLIN DEPRESSION SCREEN DOC * Follow Up: 3 Weeks (Reason: medication follow up) * Billing Information: * Visit Code: * Procedure Codes: 72307 BEHAV ASSMT W/SCORE & DOCD/STAND INSTRUMENT. G9744 Pt [place] d/[place]. [address] PSYCHIATRIC DIAGNOSTIC EVAL W/MEDICAL SERVICES. G2211 VISIT COMPLEXITY INHERENT TO ONGOING CARE RELATED TO A PATIENT'S SINGLE, SERIOUS CONDITION OR A COMPLEX CONDITION. G8431 CLIN DEPRESSION SCREEN DOC. * CIL ON AGING DIRECTOR Sign off status: Completed true * Provider: FRED ARRINGTON Date: 0 11/01/2024 Generated for Chetan carey/Deandra/Nikita on: 0 12/05/2024 08:06 AM CDT History and Physical Notes * HPI (History of Present Illness) Category Sub-Category Detail Notes Category Not es History of Presenting Problem Anxiety with excessive worry, with restlessness, which has been long-standing Here to establish care. Referred here by PCP for depression and anxiety. She is a poor historian to psychiatric and medication hsitory, unsure of past dx and current medication. Reports depression started when she got in 2019. Per records, she is currently on paroxetine per PCP. States depression has evolved to anxiety, paranoia, I feel like everyone wants things to be bad for me, everyone has a hidden agenda . Denies panic attacks recently associated with increase in anxiety. Reports her ex made me feel crazy; I dont trust anyone , he would gaslight her when she suspected he was cheating and reassured he wasn't, although later confirmed that he was which resulted in the divorce. She is unsure if she is taking her medications, that is a good question . Reports she previously saw psychiatrist, although unsure name of psychiatrist or when this occured. Does report an inpatient psychiatric admission around 2008 for suicide attempt by OD, denies recent suicidal ideation. Reports depression symptoms include low mood, low motivation, poor energy, feeling hopeless and helpless at times. Sleep is fair, per records was prescribed Lunesta, pt unsure if she is taking this; it might by the medicine I just found under my seat in my car . Getting about 6 hours nightly, difficulty falling asleep some nights. Appetite is fair. Depression with decreased dexter ntration, with decreased energy, with sad mood, with isolative behavior, which has been long-standing Suicidal ideation denies Psychosis reports she previous ly has heard voices of previous family members that have Mood lability no hx scott Past Psychiatric Hospitalizations Previous psychiatric hospitalizations Previous Psychiatric Hospitalization: Yes Social hx: . Has one daughter. 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 Medical hx: Ulcerative colitis, HTN Past psychiatric hx- Past [facility] admissions/IOP/PHP: 2009 admission for suicide attempt Previous suicide attempts: 2009 OD Previous medications: pt does not know previous medications (per chart- quetiapine, risperdal, lurasidone). Supplements: none Trauma/Abuse: none Substance use hx: [...] inte rest or pleasure in doing things: More than half the days Feeling down, depressed, or hopeless: Mo re than half the days Trouble falling or staying a sleep, or sleeping too much: More than half the days Feeling tired or having little energy: N early every day Poor appetite or overeating: Not at all Feeling bad about yourself o r that you are a failure, or have let yourself or your family down: More than half the days Trouble concentrating on thi ngs, such as reading the newspaper or watching television: Nearly every day Moving or speaking so slowly that other people could have noticed; or the opposite, being so fidgety or restless that you have been moving around a lot more than usual: Several days Thoughts that you would be b maria elena off or of hurting yourself in some way: Several days (Consider Suicide Assessment Risk) Total Score: 16 Interpretation: Moderately Severe Depres marina Intervention Depression Screening Findings: P ositve Follow-Up for Depression: [facility] treatment assessment, Patient follow-up to return when and if necessary Suicide Risk Assessment Performed: 11/01 Additional Evaluation for Depression: Ps ychiatric interview and evaluation Name of the standardized too l used for adult depression screening:: Patient Health Questionnaire (PHQ-9) Depression Screening CATHY-7 (2018 Edition) Feelin g nervous, anxious, or on edge: Several days Not being able to stop or control worryi ng: Nearly every day Worrying too much about different things : Nearly every day Trouble relaxing: More than half the day s Being so restless that it is hard to sit still: Not at all Becoming easily annoyed or irritable: Se veral days Feeling afraid as if something awful andrea ht happen: Several days If you checked any problems, how difficult have they made it for you to do your work, take care of things at home, or get along with other people?: Very difficult Interpretation of Total: (10 to 14) Mode rate [place]-Suicide Severity Rating Scale Suicide Risk (CSRS-screener) in the past one month Have you wished you were or wished you could go to sleep and not wake up?: Yes in the past one month Have y ou actually had any thoughts of killing yourself?: Yes Have you started to work out or worked out the details of how to kill yourself? Do you intend to carry out this plan?: No Have you had these thoughts and had some intention of acting on them?: No Have you been thinking about how you might do this?: No Examination Category Sub-Category Detail Notes Category Not es Psychiatry Appearance: well-groomed Attitude: cooperative Psychomotor activity: within normal rang e Abnormal body movements: none Attention: good Degree of awareness of surroundings: wit hin normal limits Orientation: awake, alert and lisa ented x 3 Affect / mood: appropriate Speech / language: normal rate, volume, and articulation (RVR), clear and coherent, appropriate pitch/modulation Insight: good Judgement: good Thought process: intact Thought content: appropriate Perceptual disorders: no perceptual diso rder noted Suicidal ideation: none Homicidal ideation: none Delusions: no Hallucinations: no
[2024-12-26 11:32] VITALS: BMI 32.9
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
== END 2024-12-11 08:55 | disposition home or self-care (01) ==
PROVIDERS: PCP Nurse Practitioner; Visit Provider Physician Assistant
DX: G47.10 Hypersomnia, unspecified (principal); G47.33 Obstructive sleep apnea (adult) (pediatric)
CPT/HCPCS: 95800

== ENCOUNTER 2024-12-07 17:57 | Emergency (ER) | payer BC, SELFPAY ==
--- OUTSIDE RECORDS SUMMARY | 2024-12-07 18:00 | XMS_ITS | Patient Health Record ---
Author Organization [facility] [employer] Address [address] [place] [address] Care Team Providers Care Planning Official Name Role Phone Raheel LAMBERT, Bernarda Primary Care Provider Asya Viridiana López Unavailable [phone] Migration, Provider Unavailable Unavailable Allergies Allergen (clinical [...] Problem Status W/U Status Risk Notes Problem [id number] Major depressive disorder, recurrent severe without psychotic features (F33.2) Active confirmed Problem Generalized anxiety disorder (92605466) CATHY (generalized anxiety disorder) (F41.1) Active confirmed Problem Mood disorder (20171606) Mood disorder (F39) Active confirmed Vital Signs Heart Rate 89 /min 12/01/2024 Height-cm 157.51 cm 12/01/2024 Blood pressure diastolic 89 mm Hg 12/01/2024 Weight-kg 78.47 kg 12/01/2024 Height 62.01 in 12/01/2024 Blood pressure systolic 123 mm Hg 12/01/2024 Weight 173 lbs 12/01/2024 BMI 31.63 kg/m2 12/01/2024 Encounters Encounter Location Date Provider Diagnosis [address] [address] 11/01/2024 Viridiana Isaías Mood disorder F39 ; CATHY (generalized anxiety disorder) F41.1 and Benign essential HTN I10 [facility] [address] [address] 12/01/2024 Viridiana Isaías CATHY (generalized anxiety disorder) F41.1 ; Major depressive disorder, recurrent severe without psychotic features F33.2 ; Benign essential HTN I10 ; Encounter for screening for cardiovascular disorders Z13.6 and Encounter for screening for depression Z13.31 [facility] [address] [address] 02/05/2024 Provider Migration [facility] [address] [address] 02/06/2024 Provider Migration Assessments Encounter Date Diagnosis [...] Details Provider Name:Viridiana Metz, 12/29/2024 08:45:00 AM, [address], [place], [address], Insurance Providers Payer Name Payer Address Payer Phone Subscriber Number Group Number Insured Name Patient Relationship to Insured Coverage Start Date Coverage End Date [facility] [address] [place] [address] [id number], SHAMONE Self - patient [...]
--- OUTSIDE RECORDS SUMMARY | 2024-12-07 18:01 | XMS_ITS | CONTINUITY OF CARE DOCUMENT ---
Author Name sammie cochran Address Unknown Organization [facility] Address [address] [facility] [address] [place] [address] Phone [phone] Care Team Providers Care Printing Equipment Mechanic Apprentice Name Role Phone sammie cochran Unavailable Unavailable INSURANCE PROVIDERS Payer name Policy type / Coverage type Hemant red libertarian ID [facility] [id number] Other [id number]
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
[2024-12-07 18:52] VITALS: BP 150/108; PULSE 96; RESP 18; TEMP 36.7; O2SAT 100
--- OUTSIDE RECORDS SUMMARY | 2024-12-08 00:05 | XMS_ITS | CONTINUITY OF CARE DOCUMENT ---
Author Name sammie cochran Address Unknown Organization [facility] Address [address] [place] [address] Phone [phone] Care Team Providers Care Pastor Name Role Phone sammie cochran Unavailable Unavailable INSURANCE PROVIDERS Payer name Policy type / Coverage type Hemant red alliance party ID [facility] [id number] Other [id number]
[2024-12-08 00:32] LABS: Basophils Percent Auto 0.3 % (0.2-1.2); Eosinophils Percent Auto 0.2 % (0-4.4); Hematocrit 35.9 % (37.0-47.0); Hemoglobin 12.3 g/dL (12.0-15.0); Immature Granulocyte Absolute 0.01 K/mm3 (0.00-0.031); Immature Granulocyte Percent A 0.2 % (0-0.5); Lymphocytes Absolute Auto 1.07 K/mm3 (0.9-3.2); Lymphocytes Percent Auto 16.3 % (18.3-44.2); Mean Corpuscular HGB Conc 34.3 g/dl (32-36); Mean Corpuscular Hemoglobin 23.8 pg (26-34); Mean Corpuscular Volume 69.6 fl (80-100); Mean Platelet Volume 9.9 fl (7.4-10.4); Monocytes Absolute Auto 0.5 K/mm3 (0.1-0.6); Monocytes Percent Auto 8.2 % (2.6-8.5); Neutrophils Absolute Auto 4.9 K/mm3 (1.3-6.7); Neutrophils Percent Auto 74.8 % (45.5-73.1); Platelet Count Result 207 k/mm3 (150-375); Red Blood Count 5.16 M/mm3 (4.2-5.4); Red Cell Distribution Width 15.4 % (11.5-14.5); White Blood Count 6.6 K/mm3 (4.5-10.0)
[2024-12-08 00:38] LABS: Pregnancy On Board Control Positive; Urine Pregnancy Test Negative
[2024-12-08 00:41] LABS: Alanine Aminotransferase 28 U/L (6-35); Albumin Level 4.5 g/dL (3.5-5.1); Alkaline Phosphatase 56 U/L (38-126); Anion Gap 12 mmol/L (4-12); Aspartate Amino Transferase 33 U/L (14-36); Bilirubin,Total 0.8 mg/dL (0.2-1.3); Blood Urea Nitrogen 18 mg/dL (7-17); Calcium 9.1 mg/dL (8.4-10.2); Carbon Dioxide 23 mmol/L (22-30); Chloride 100 mmol/L (98-107); Estimated CRCL calculation 112 ml/min; Estimated Glomerular Filt Rate > 60; Glucose 94 mg/dL (65-110); Potassium 3.8 mmol/L (3.4-5.0); Sodium 135 mmol/L (137-145)
[2024-12-08 00:51] LABS: Anisocytosis 1+; Band Neutrophils Percent 0 % (0-6); Hypochromasia 1+; Platelet Estimate Adequate (Adequate); Schistocytes None Seen; Target Cells 1+
[2024-12-08 01:35] VITALS: BP 138/78; PULSE 84; RESP 14; O2SAT 99
[2024-12-08] MEDS: levonorgestreL 1.5 MG TABLET PO (01:35)
[2024-12-08] MEDS: ONDANSETRON HCL ODT 4 MG TABLET PO (01:35)
[2024-12-08] MEDS: DOXYCYCLINE HYCLATE 100 MG TABLET PO (01:35)
[2024-12-08] MEDS: RALTEGRAVIR 400 MG TABLET PO (01:35)
[2024-12-08] MEDS: EMTRICITABINE-TENOFOVIR 100 MG-150 MG TABLET 2 TAB PO (01:35)
[2024-12-08] MEDS: cefTRIAXone 1 GM VIAL 0.5 GM IM (01:35)
[2024-12-08] MEDS: LIDOCAINE 1% LOCAL INJ 10 ML VIAL (01:35)
[2024-12-08 02:35] LABS: Syphilis IgG/IgM Antibody Negative (Negative)
[2024-12-08 02:36] LABS: HIV 1/2 Ab P24 Ag Result Negative (Negative)
[2024-12-08 02:49] LABS: Chlamydia trachomatis NOT DETECTED (NOT DETECTE); Neisseria gonorrhoeae PCR NOT DETECTED (NOT DETECTE); Trichomonas Vag PCR NOT DETECTED (NOT DETECTE)
[2024-12-09 05:17] LABS: Hepatitis B Core Ab Total NON-REACTIVE (NON-REACTIVE)
== END 2024-12-08 02:25 | disposition home or self-care (01) ==
PROVIDERS: Emergency Provider Registered Nurse; PCP Family Medicine
DX: T76.21XA Adult sexual abuse, suspected, initial encounter (principal); E86.0 Dehydration; I10 Essential (primary) hypertension
CPT/HCPCS: 36415; 80053; 81025; 85025; 86593; 86703; 86704; 87491; 87591; 87661; 96372; 99285; A9270; G0432; J0696; J2003

== ENCOUNTER 2025-04-05 09:24 | Outpatient (CLI) | payer BC, SELFPAY ==
--- OUTSIDE RECORDS SUMMARY | 2025-04-05 09:36 | XMS_ITS | Patient Health Record ---
Author Organization [facility] [employer] Address [address] [place] [address] Care Team Providers Care Fish Net Maker Name Role Phone Raheel LAMBERT, Bernarda Primary Care Provider Asya Viridiana Myers Unavailable [phone] Allergies Allergen (clinical drug ingredient) Drug/Non Drug Allergy documented on EMR Reaction Allergy Type Onset Date Status risperidone risperiDONE Unknown Drug Allergy Act cameron fluconazole Fluconazole Unknown Drug Allergy Act cameron Reason For Referral No Information Medications Medication SIG (Take, Route, Frequency, Duration) Notes Start Date End Date Status amLODIPine Besy-Benazepril HCl 5-20 MG TAKE 1 CAPSULE BY MOUTH DAILY Oral; Duration: 90 Days Active Propranolol HCl 20 MG TAKE 1 TABLET BY M OUTH EVERY 8 HOURS NEEDED FOR PALPITATIONS Oral; Duration: 20 Days Active Indapamide 1.25 MG TAKE 1 TABLET BY NEAL TH DAILY Oral; Duration: 90 Days Active Eszopiclone 2 MG Oral; Duration: 1 Days Active PARoxetine HCl 30 MG 1 tablet in the mor vahid Oral Once a day; Duration: 30 days Active hydrOXYzine HCl 25 MG 1 tablet Oral twice a day; Duration: 30 days As needed Active Social History Tobacco Use: Social History [...] Problem Status W/U Status Risk Notes Problem Severe recurrent major depression without psychotic features (23167286) Major depressive disorder, recurrent severe without psychotic features (F33.2) Active confirmed Problem Generalized anxiety disorder (84342214) CATHY (generalized anxiety disorder) (F41.1) Active confirmed Problem Mood disorder (53487243) Mood disorder (F39) Active confirmed Vital Signs Heart Rate 83 /min 12/29/2024 Height-cm 157.51 cm 12/29/2024 Blood pressure diastolic 89 mm Hg 12/29/2024 Weight-kg 77.57 kg 12/29/2024 Height 62.01 in 12/29/2024 Blood pressure systolic 125 mm Hg 12/29/2024 Weight 171 lbs 12/29/2024 BMI 31.26 kg/m2 12/29/2024 Encounters Encounter Location Date Provider Diagnosis [facility] [employer] [place] [address] [address] [facility] [address] [address] 11/01/2024 Viridiana Chetser Mood disorder F39 ; CATHY (generalized anxiety disorder) F41.1 and Benign essential HTN I10 [facility] [employer] [address] [address] 12/01/2024 Viridiana Chester CATHY (generalized anxiety disorder) F41.1 ; Major depressive disorder, recurrent severe without psychotic features F33.2 ; Benign essential HTN I10 ; Encounter for screening for cardiovascular disorders Z13.6 and Encounter for screening for depression Z13.31 [facility] [employer] [place] [address] [address] 12/29/2024 Viridiana Chester Encounter for screen ing for cardiovascular disorders Z13.6 ; Encounter for screening for depression Z13.31 ; Major depressive disorder, recurrent severe without psychotic features F33.2 ; CATHY (generalized anxiety disorder) F41.1 and [...] severe without psychotic features (ICD-10 - F33.2) 12/29/2024 Encounter for screening for cardiovascular disorders (ICD-10 - Z13.6) 12/01/2024 CATHY (generalized anxiety disorder) (ICD-10 - F41.1) 12/01/2024 Benign essential HTN (ICD-10 - I10) 12/29/2024 Encounter for screening for depression (ICD-10 - Z13.31) 11/01/2024 Benign essential HTN (ICD-10 - I10) 12/29/2024 Major depressive disorder, recurrent severe without psychotic features (ICD-10 - F33.2) 12/01/2024 Encounter for screening for cardiovascular disorders (ICD-10 - Z13.6) 12/29/2024 CATHY (generalized anxiety disorder) (ICD-10 - F41.1) 12/29/2024 Benign essential HTN (ICD-10 - I10) 12/01/2024 Encounter for screening for depression (ICD-10 [...] therapeutic effects of psychotropic medications. -Crisis [facility] 988. 12/29/2024 Other Feels stable, continue current medications. -refills sent in today. Patient educated on all medications including potential benefits, side effects, risks. Educated on proper dosing schedule and importance of compliance. Encouraged to bring list of supplements next apt to check for interactions -Assessment and treatment plan reviewed with patient. -Compliance with treatment plan importance discussed. -Discussed the risks/benefits of this medication -Discussed medication side effects. -Contact office if symptoms worsen. -Discussed that it can take up to 6-8 weeks to see full therapeutic effects of psychotropic medications. -Crisis prevention [facility] 98. Plan Of Treatment Next Appt Details Provider Name:Viridiana vegas, 05/10/2025 08:00:00 AM, [address], [place], [address], Insurance Providers Payer Name Payer Address Payer Phone Subscriber Number Group Number Insured Name Patient Relationship to Insured Coverage Start Date Coverage End Date [facility] [address] [place] [address] [id number]ONE Self - patient is the insured [...]
--- OUTSIDE RECORDS SUMMARY | 2025-04-05 09:36 | XMS_ITS | Patient Health Record ---
Author Organization [address] [facility] Address [address] [place] [address] Care Team Providers Care Access Clinician Name Role Phone UNKNOWN, UNKNOWN Primary Care Provider Unavailab Ailyn Andrews Unavailable [phone] Allergies Allergen (clinical drug ingredient) Drug/Non Drug Allergy documented on EMR Reaction Allergy Type Onset Date Status Latex Latex Unknown Allergy Active Reason For Referral No Information Medications Medication SIG (Take, Route, Frequency, Duration) Notes Start Date End Date Status Mesalamine 400 MG TAKE 2 CAPSULES BY M OUTH TWICE DAILY Oral; Duration: 30 Days Active Omeprazole 40 MG Oral; Duration: 90 Days Active amLODIPine Besy-Benazepril HCl 5-10 MG Oral; Duration: 90 Active Trintellix 10 MG Oral; Duration: 30 Active Benzonatate 100 MG Oral; Duration: 10 Active Social History Tobacco Use: Social History Observation Description Date Details (start date - stop date) Never Smoker NA - NA Tobacco Use/Smoking Question Answer Notes Are you a nonsmoker Problems Problem Type SNOMED Code ICD Code Onset Dates Problem Status W/U Status Risk Notes Problem Acquired hammer toe of right foot ([id number] 105) Hammertoe of right foot (M20.41) Active confirmed Problem Acquired hammer toe of left foot ([id number] 103) Hammertoe of left foot (M20.42) Active confirmed Plan Of Treatment No Information Insurance Providers Payer Name Payer Address Payer Phone Subscriber Number Group Number Insured Name Patient Relationship to Insured Coverage Start Date Coverage End Date [facility] [address] [place] [phone] [id number] Huma Chong Self - patient is the insured Medical (General) History Medical History History ICD Code High blood pressure Surgical History Surgery Date(Month/Year)
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
[2025-05-02 12:28] VITALS: BMI 33.0
== END 2025-04-06 06:53 | disposition home or self-care (01) ==
LOC: ANHCSM 09:30
PROVIDERS: PCP Student in an Organized Health Care Education/Training Program; Visit Provider Physician Assistant
DX: G47.33 Obstructive sleep apnea (adult) (pediatric) (principal)
CPT/HCPCS: 95811

== ENCOUNTER 2025-08-23 10:34 | Outpatient (CLI) | payer BC, SELFPAY ==
--- NOTE | ~2025-08-23 | US_ITS ---
EXAMINATION: US transvaginal, 08/23/2025 10:37 [facility]NA[facility]ING ATTORNEY HISTORY: Abnormal uterine bleeding Comparison: None Technique: Reid-scale and color Doppler images were obtained. Findings: Uterus: The uterus is anteverted 9 x 5.9 x 5.5 cm. IUD is identified but not well demonstrated but appears in appropriate location within the uterine cavity. There are multiple fibroids identified the largest measuring 3.2 x 3.4 cm which appears submucosal in location. . Endometrium 3.6 mm. Right Ovary:Right ovary 3 x 2.6 x 2.1 cm, no adnexal mass, normal flow, dominant follicle 1.3 x 1.3 cm. Left Ovary: Left ovary 2.2 x 1.8 x 1.8 cm, no adnexal mass, normal flow. Free Fluid: None Impression: 1. Fibroids detailed above with probable submucosal fibroid which may explain abnormal bleeding. Contrast-enhanced MRI is recommended Reviewed, dictated and finalized at location [facility] Impression: 1. Fibroids detailed above with probable submucosal fibroid which may explain a bnormal bleeding. Contrast-enhanced MRI is recommended
== END 2025-08-23 10:35 | disposition home or self-care (01) ==
LOC: MICIMG 10:35
DX: N93.8 Other specified abnormal uterine and vaginal bleeding (principal); D25.9 Leiomyoma of uterus, unspecified
CPT/HCPCS: 76830